=== PATIENT | male | born 1935 | race African-American/Black ===

== ENCOUNTER 2022-01-02 16:47 | Inpatient (IN) | payer MEDICARE, MEDICAID ==
[~2022-01-02] VITALS: Ht 185.4 cm; Wt 69.9 kg
[2022-01-02] MEDS ORDERED: VANCOMYCIN 1G PREMIX 200 ML IV SCH (17:15)
[2022-01-02] MEDS ORDERED: ADENOSINE 3 MG/ML 2ML VIAL IV ONE (17:15)
[2022-01-02] MEDS ORDERED: CEFTRIAXONE 1 G PREMIX 50 ML IV ONE (17:15)
[2022-01-02] MEDS ORDERED: SODIUM CHLORIDE 0.9% 1,000 ML IV ONE (17:15)
[2022-01-02] MEDS ORDERED: ACETAMINOPHEN 650MG SUPP PR ONE (17:30)
[2022-01-02 17:35] LABS: BASOPHILS % 0.4 % (0.0-2.0); EOSINOPHILS % 0.4 % (0.0-5.0); HEMATOCRIT. 28.6 % (42.0-52.0); HEMOGLOBIN. 9.2 g/dL (14.0-18.0); MEAN CORPUSCULAR HEMOGLOBIN 30.1 pg (28.0-32.0); MEAN PLATELET VOLUME 9.2 fl (7.4-10.4); MONOCYTES % 4.4 % (2.0-8.0); NEUTROPHILS % 83.8 % (40.0-76.0); PLATELET 529 x1000/uL (130-400); RED BLOOD CELL COUNT 3.04 mill/uL (4.7-6.1); RED CELL DISTRIBUTION WIDTH 14.8 % (11.6-14.6)
[2022-01-02 17:41] LABS: CHLORIDE 115 mEq/L (98-107)
[2022-01-02] MEDS ORDERED: MIDAZOLAM HCL 100 MG in DEXT 5% WATER 80 ML IV ONE (17:45)
[2022-01-02] MEDS ORDERED: DILTIAZEM HCL 5MG/ML 5ML VIAL IV ONE (17:45)
[2022-01-02] MEDS ORDERED: MIDAZOLAM 100MG/100ML PMX 100 ML IV PRN (18:00)
[2022-01-02 18:06] LABS: BG BASE EXCESS -9.4 mmol/L (-2.0-2.0); BG CARBOXYHEMOGLOBIN 0.3 % (0.5-1.5); BG DEOXYHEMOGLOBIN 0.6 % (0.0-5.0); BG FRACTION INSPIRED OXYGEN 100; BG HCO3 ACT 16.3 mmol/L (22.0-26.0); BG METHEMOGLOBIN 0.4 % (0.0-1.5); BG OXYGEN SATURATION 99.4 % (92.0-98.5); BG OXYHEMOGLOBIN 98.7 % (94.0-97.0); BG PCO2 34.5 mmHg (35.0-45.0); BG PH 7.292 (7.350-7.450); BG PO2 459.9 mmHg (75.0-100.0); BG SAMPLE SITE RIGHT RADIAL; BG TOTAL HEMOGLOBIN 9.1 g/dL (12.0-18.0); BG VENT MODE VENT - AC
[2022-01-02] MEDS ORDERED: PROPOFOL 10MG/ML 100ML 100 ML IV NR (19:30)
[2022-01-02] MEDS ORDERED: PROPOFOL 10MG/ML 100ML 100 ML IV ONE (19:30)
[2022-01-02] MEDS ORDERED: MORPHINE SULFATE 4 MG/ML CPJ (NOT FOR IM USE) IV ONE (22:30)
[2022-01-02] MEDS ORDERED: NOREPINEPHRINE 8MG/250ML PMX 250 ML IV ONE (22:30)
[2022-01-03] VITALS (44 sets, daily range): BP systolic 89–135; BP diastolic 42–69
[2022-01-03] MEDS ORDERED: NOREPINEPHRINE 8MG/250ML PMX 250 ML IV ONE
[2022-01-03] MEDS ORDERED: NOREPINEPHRINE 8MG/250ML PMX 250 ML IV NR ×2 (05:15→05:30)
[2022-01-03] MEDS ORDERED: MIDAZOLAM 100MG/100ML PMX 100 ML IV PRN (05:30)
[2022-01-03] MEDS ORDERED: PROPOFOL 10MG/ML 100ML 100 ML IV SCH (05:30)
[2022-01-03 08:13] LABS: BG BASE EXCESS -6.1 mmol/L (-2.0-2.0); BG CARBOXYHEMOGLOBIN 0.3 % (0.5-1.5); BG DEOXYHEMOGLOBIN 1.7 % (0.0-5.0); BG HCO3 ACT 18.2 mmol/L (22.0-26.0); BG METHEMOGLOBIN 0.3 % (0.0-1.5); BG OXYGEN SATURATION 98.3 % (92.0-98.5); BG OXYHEMOGLOBIN 97.7 % (94.0-97.0); BG PCO2 32.4 mmHg (35.0-45.0); BG PH 7.368 (7.350-7.450); BG PO2 119.8 mmHg (75.0-100.0); BG SAMPLE SITE RIGHT RADIAL; BG TOTAL HEMOGLOBIN 12.3 g/dL (12.0-18.0); BG VENT MODE VENT - AC
[2022-01-03] MEDS ORDERED: PANTOPRAZOLE 80 MG in SODIUM CHLORIDE 0.9% 100 ML IV SCH (08:15)
[2022-01-03 10:02] LABS: CLARITY URINE TURBID (CLEAR); COLOR URINE DARK YELLOW (YELLOW); KETONES URINE TRACE (NEGATIVE); LEUKOCYTE ESTERASE URINE 2+ (NEGATIVE); NITRITE URINE NEGATIVE (NEGATIVE); OCCULT BLOOD URINE 3+ (NEGATIVE); PROTEIN URINE 2+ (NEGATIVE); SPECIFIC GRAVITY URINE 1.022 (1.005-1.030)
[2022-01-03] MEDS ORDERED: ACETAMINOPHEN 325MG TABLET PO PRN (11:15)
[2022-01-03] MEDS ORDERED: HYDROCODONE/ACETAMINOPHEN 5/325MG TABLET PO PRN (11:15)
[2022-01-03] MEDS ORDERED: MAGNESIUM/ALUMINUM HYDROXIDE/SIMETHICONE 30ML UDC PO PRN (11:15)
[2022-01-03] MEDS ORDERED: CLONIDINE 0.1MG TABLET PO PRN (11:15)
[2022-01-03] MEDS ORDERED: DEXTROSE 50% WATER 50ML SYRINGE IV PRN (11:15)
[2022-01-03] MEDS ORDERED: LIDOCAINE HCL 1% 10 MG/ML 10ML VIAL ONE (11:16)
[2022-01-03] MEDS: METHYLPREDNISOLONE SOD SUCC 125 MG/2 ML VIAL IV SCH ×2 (12:01→22:18)
[2022-01-03 12:18] LABS: BASOPHILS % 0.3 % (0.0-2.0); EOSINOPHILS % 0.1 % (0.0-5.0); HEMATOCRIT. 29.3 % (42.0-52.0); HEMOGLOBIN. 9.2 g/dL (14.0-18.0); LYMPHOCYTES % 9.1 % (20.0-50.0); MEAN CORPUSCULAR HEMOGLOBIN 29.9 pg (28.0-32.0); MEAN CORPUSCULAR VOLUME 95.7 fL (80.0-94.0); MONOCYTES % 4.8 % (2.0-8.0); NEUTROPHILS % 85.7 % (40.0-76.0); RED BLOOD CELL COUNT 3.06 mill/uL (4.7-6.1); RED CELL DISTRIBUTION WIDTH 15.3 % (11.6-14.6)
[2022-01-03] MEDS ORDERED: ASPIRIN 81MG EC TABLET PO SCH (12:30)
[2022-01-03] MEDS: PIPERACILLIN/TAZOBACTAM 3.375 G in DEXTROSE 5% WATER 50 ML IV SCH ×2 (12:33→22:18)
[2022-01-03] MEDS: PANTOPRAZOLE SODIUM 40 MG/VIAL IV SCH ×2 (12:33→21:10)
[2022-01-03] MEDS: SODIUM BICARBONATE 100 MEQ in DEXTROSE 5% WATER 1,000 ML IV SCH ×2 (12:34→20:51)
[2022-01-03] MEDS ORDERED: VANCOMYCIN 500MG PREMIX 100 ML IV SCH (13:00)
[2022-01-03] MEDS ORDERED: ENOXAPARIN 30MG/0.3ML SYR SUBCUT SCH (13:00)
[2022-01-03 13:14] LABS: CHLORIDE 115 mEq/L (98-107)
[2022-01-03] MEDS ORDERED: CYAN50003 PO (13:29)
[2022-01-03] MEDS ORDERED: METO25TA6 PO (13:29)
[2022-01-03] MEDS ORDERED: LISI2.5T47 PO (13:29)
[2022-01-03] MEDS ORDERED: ASPI-1497 PO (13:29)
[2022-01-03] MEDS ORDERED: MEMA5TAB42 MT (13:29)
[2022-01-03 13:46] LABS: CREATINE KINASE 10925 IU/L (39-308)
[2022-01-03] MEDS: BLOOD SUGAR DIAGNOSTIC STRIP TEST SCH ×3 (13:47→20:51)
[2022-01-03] MEDS: INSULIN LISPRO 100 UNITS/ML SUBCUT SCH ×3 (13:55→21:12)
[2022-01-03] MEDS ORDERED: NOREPINEPHRINE 8 MG in DEXT 5% WATER 242 ML IV PRN (16:00)
[2022-01-03] MEDS ORDERED: NALOXONE HCL 0.4MG/ML VIAL IV PRN (16:15)
[2022-01-03 18:29] LABS: CREATINE KINASE MB FRACTION 35.6 ng/mL (0.5-3.6)
[2022-01-04] VITALS (45 sets, daily range): BP systolic 95–155; BP diastolic 52–84
[2022-01-04 00:58] LABS: CREATINE KINASE MB FRACTION 29.7 ng/mL (0.5-3.6)
[2022-01-04] MEDS: SODIUM BICARBONATE 100 MEQ in DEXTROSE 5% WATER 1,000 ML IV SCH ×3 (05:55→23:43)
[2022-01-04] MEDS: METHYLPREDNISOLONE SOD SUCC 125 MG/2 ML VIAL IV SCH ×3 (06:05→22:00)
[2022-01-04 06:16] LABS: HEMATOCRIT. 29.2 % (42.0-52.0); HEMOGLOBIN. 9.6 g/dL (14.0-18.0); MEAN CORPUSCULAR HEMOGLOBIN 30.2 pg (28.0-32.0); MEAN CORPUSCULAR VOLUME 91.7 fL (80.0-94.0); MEAN PLATELET VOLUME 9.3 fl (7.4-10.4); PLATELET 442 x1000/uL (130-400); RED BLOOD CELL COUNT 3.18 mill/uL (4.7-6.1)
[2022-01-04 06:32] LABS: CHLORIDE 106 mEq/L (98-107)
[2022-01-04 06:55] LABS: CREATINE KINASE MB FRACTION 21.4 ng/mL (0.5-3.6); HDL CHOLESTEROL 34 mg/dL (40-59); LDL CHOLESTEROL 119 mg/dL (5-100); PHOSPHORUS 3.7 mg/dL (2.5-4.9)
[2022-01-04] MEDS: BLOOD SUGAR DIAGNOSTIC STRIP TEST SCH ×4 (07:50→21:00)
[2022-01-04] MEDS: PIPERACILLIN/TAZOBACTAM 3.375 G in DEXTROSE 5% WATER 50 ML IV SCH ×2 (08:58→21:59)
[2022-01-04] MEDS: PANTOPRAZOLE SODIUM 40 MG/VIAL IV SCH ×2 (08:58→22:00)
[2022-01-04] MEDS: INSULIN LISPRO 100 UNITS/ML SUBCUT SCH ×4 (08:59→23:42)
[2022-01-04 09:08] LABS: BG BASE EXCESS 1.3 mmol/L (-2.0-2.0); BG CARBOXYHEMOGLOBIN 0.3 % (0.5-1.5); BG DEOXYHEMOGLOBIN 1.8 % (0.0-5.0); BG FRACTION INSPIRED OXYGEN 40; BG HCO3 ACT 24.2 mmol/L (22.0-26.0); BG METHEMOGLOBIN 0.4 % (0.0-1.5); BG OXYGEN SATURATION 98.2 % (92.0-98.5); BG OXYHEMOGLOBIN 97.5 % (94.0-97.0); BG PCO2 32.4 mmHg (35.0-45.0); BG PH 7.492 (7.350-7.450); BG PO2 108.7 mmHg (75.0-100.0); BG SAMPLE SITE RIGHT RADIAL; BG TOTAL HEMOGLOBIN 10.3 g/dL (12.0-18.0); BG VENT MODE VENT - AC
[2022-01-04 10:35] LABS: CREATINE KINASE 3970 IU/L (39-308); ETHANOL BLOOD < 10 mg/dL
[2022-01-04 10:51] LABS: PLATELET ESTIMATE SLIGHTLY INCREASED
[2022-01-04] MEDS: INSULIN GLARGINE 100 UNITS/ML SUBCUT SCH (22:01)
[2022-01-04 22:23] LABS: *AMPHETAMINES SCREEN URINE NEGATIVE (NEGATIVE); *BARBITURATES SCREEN URINE NEGATIVE (NEGATIVE); *BENZODIAZEPINES SCREEN URINE PRESUMTIVE POSITIVE (NEGATIVE); *COCAINE SCREEN URINE NEGATIVE (NEGATIVE); CANNABINOID URINE SCREEN NEGATIVE (NEGATIVE); METHADONE URINE SCREEN NEGATIVE (NEGATIVE); OPIATES URINE SCREEN NEGATIVE (NEGATIVE); PHENCYCLIDINE URINE SCREEN NEGATIVE (NEGATIVE)
[2022-01-05] VITALS (41 sets, daily range): BP systolic 100–154; BP diastolic 53–82
[2022-01-05] MEDS: METHYLPREDNISOLONE SOD SUCC 125 MG/2 ML VIAL IV SCH ×3 (05:16→21:59)
[2022-01-05 06:13] LABS: HEMATOCRIT. 25.1 % (42.0-52.0); HEMOGLOBIN. 8.6 g/dL (14.0-18.0); MEAN CORPUSCULAR VOLUME 89.9 fL (80.0-94.0); MEAN PLATELET VOLUME 9.4 fl (7.4-10.4); PLATELET 428 x1000/uL (130-400); RED BLOOD CELL COUNT 2.79 mill/uL (4.7-6.1); RED CELL DISTRIBUTION WIDTH 14.8 % (11.6-14.6)
[2022-01-05 06:56] LABS: PHOSPHORUS 4.6 mg/dL (2.5-4.9)
[2022-01-05] MEDS: SODIUM BICARBONATE 100 MEQ in DEXTROSE 5% WATER 1,000 ML IV SCH (08:06)
[2022-01-05] MEDS: INSULIN LISPRO 100 UNITS/ML SUBCUT SCH ×3 (08:06→18:07)
[2022-01-05] MEDS: BLOOD SUGAR DIAGNOSTIC STRIP TEST SCH ×3 (08:06→18:03)
[2022-01-05 08:54] LABS: BG BASE EXCESS 9.5 mmol/L (-2.0-2.0); BG CARBOXYHEMOGLOBIN 0.3 % (0.5-1.5); BG DEOXYHEMOGLOBIN 2.1 % (0.0-5.0); BG FRACTION INSPIRED OXYGEN 40; BG HCO3 ACT 32.2 mmol/L (22.0-26.0); BG METHEMOGLOBIN 0.4 % (0.0-1.5); BG OXYGEN SATURATION 97.9 % (92.0-98.5); BG OXYHEMOGLOBIN 97.2 % (94.0-97.0); BG PCO2 36.5 mmHg (35.0-45.0); BG PH 7.564 (7.350-7.450); BG PO2 104.3 mmHg (75.0-100.0); BG SAMPLE SITE LEFT RADIAL; BG TOTAL HEMOGLOBIN 9.3 g/dL (12.0-18.0); BG VENT MODE VENT - AC
[2022-01-05] MEDS: PANTOPRAZOLE SODIUM 40 MG/VIAL IV SCH ×2 (09:09→21:35)
[2022-01-05] MEDS: PIPERACILLIN/TAZOBACTAM 3.375 G in DEXTROSE 5% WATER 50 ML IV SCH ×2 (09:09→21:36)
[2022-01-05] MEDS: DEXT 5%/0.45% NACL 1000ML 1,000 ML IV SCH ×2 (10:08→17:23)
[2022-01-05] MEDS ORDERED: VANCOMYCIN 750MG PREMIX 150 ML IV SCH (13:00)
[2022-01-05 14:57] LABS: PLATELET ESTIMATE SLIGHTLY INCREASED
[2022-01-05 17:09] LABS: ANTI-NUCLEAR ANTIBODIES DIRECT Negative (Negative)
[2022-01-05] MEDS: INSULIN GLARGINE 100 UNITS/ML SUBCUT SCH (22:00)
[2022-01-06] VITALS (29 sets, daily range): BP systolic 96–141; BP diastolic 40–101
[2022-01-06] MEDS: BLOOD SUGAR DIAGNOSTIC STRIP TEST SCH ×4 (00:27→17:02)
[2022-01-06] MEDS: DEXT 5%/0.45% NACL 1000ML 1,000 ML IV SCH ×4 (02:53→20:21)
[2022-01-06 05:48] LABS: HEMATOCRIT. 22.3 % (42.0-52.0); HEMOGLOBIN. 7.5 g/dL (14.0-18.0); MEAN CORPUSCULAR HEMOGLOBIN 30.3 pg (28.0-32.0); MEAN CORPUSCULAR VOLUME 90.7 fL (80.0-94.0); MEAN PLATELET VOLUME 9.1 fl (7.4-10.4); PLATELET 367 x1000/uL (130-400); RED BLOOD CELL COUNT 2.46 mill/uL (4.7-6.1); RED CELL DISTRIBUTION WIDTH 14.4 % (11.6-14.6)
[2022-01-06] MEDS: INSULIN LISPRO 100 UNITS/ML SUBCUT SCH ×4 (06:00→17:02)
[2022-01-06] MEDS: METHYLPREDNISOLONE SOD SUCC 125 MG/2 ML VIAL IV SCH ×3 (06:54→22:11)
[2022-01-06 08:26] LABS: BG BASE EXCESS 5.2 mmol/L (-2.0-2.0); BG CARBOXYHEMOGLOBIN 0.3 % (0.5-1.5); BG DEOXYHEMOGLOBIN 2.6 % (0.0-5.0); BG FRACTION INSPIRED OXYGEN 30; BG HCO3 ACT 28.2 mmol/L (22.0-26.0); BG METHEMOGLOBIN 0.3 % (0.0-1.5); BG OXYGEN SATURATION 97.4 % (92.0-98.5); BG OXYHEMOGLOBIN 96.8 % (94.0-97.0); BG PCO2 34.9 mmHg (35.0-45.0); BG PH 7.526 (7.350-7.450); BG PO2 96.4 mmHg (75.0-100.0); BG SAMPLE SITE LEFT RADIAL; BG TOTAL HEMOGLOBIN 8.4 g/dL (12.0-18.0); BG VENT MODE VENT - AC
[2022-01-06] MEDS: PANTOPRAZOLE SODIUM 40 MG/VIAL IV SCH (08:40)
[2022-01-06] MEDS: PIPERACILLIN/TAZOBACTAM 3.375 G in DEXTROSE 5% WATER 50 ML IV SCH (08:41)
[2022-01-06] MEDS ORDERED: POTASSIUM CHLORIDE 20MEQ/PACKET PO NR (09:00)
[2022-01-06] MEDS ORDERED: KCL 20MEQ/100ML PREMIX 100 ML IV NR (10:00)
[2022-01-06 10:52] LABS: BG BASE EXCESS 3.7 mmol/L (-2.0-2.0); BG CARBOXYHEMOGLOBIN 0.3 % (0.5-1.5); BG DEOXYHEMOGLOBIN 3.8 % (0.0-5.0); BG HCO3 ACT 27.4 mmol/L (22.0-26.0); BG METHEMOGLOBIN 0.3 % (0.0-1.5); BG OXYGEN SATURATION 96.2 % (92.0-98.5); BG OXYHEMOGLOBIN 95.6 % (94.0-97.0); BG PCO2 37.8 mmHg (35.0-45.0); BG PH 7.478 (7.350-7.450); BG PO2 86.7 mmHg (75.0-100.0); BG SAMPLE SITE RIGHT RADIAL; BG TOTAL HEMOGLOBIN 9.4 g/dL (12.0-18.0); BG TOTAL RESPIRATORY RATE 13 b/min; BG VENT MODE VENT - CPAP
[2022-01-06] MEDS: CEFEPIME 1,000 MG in DEXTROSE 5% WATER 50 ML IV SCH (12:29)
[2022-01-06 17:06] LABS: ANTI-MYELOPEROXIDASE AB < 0.2 units (0.0-0.9); ANTI-PROTEINASE 3 ABS < 0.2 units (0.0-0.9)
[2022-01-06 17:20] LABS: PLATELET ESTIMATE NORMAL
[2022-01-06] MEDS: IPRATROPIUM/ALBUTEROL 0.5-3(2.5)MG/3ML NEB HHN SCH (20:16)
[2022-01-06] MEDS: INSULIN GLARGINE 100 UNITS/ML SUBCUT SCH (22:12)
[2022-01-07] VITALS (34 sets, daily range): BP systolic 97–136; BP diastolic 47–74
[2022-01-07 00:23] LABS: HEMATOCRIT 25.1 % (42.0-52.0); HEMOGLOBIN 8.2 g/dL (14.0-18.0)
[2022-01-07] MEDS: IPRATROPIUM/ALBUTEROL 0.5-3(2.5)MG/3ML NEB HHN SCH ×4 (00:49→20:56)
[2022-01-07] MEDS: INSULIN LISPRO 100 UNITS/ML SUBCUT SCH ×4 (03:23→17:32)
[2022-01-07] MEDS: DEXT 5%/0.45% NACL 1000ML 1,000 ML IV SCH ×2 (04:02→14:01)
[2022-01-07] MEDS: BLOOD SUGAR DIAGNOSTIC STRIP TEST SCH ×4 (06:00→17:33)
[2022-01-07 06:40] LABS: HEMATOCRIT. 23.9 % (42.0-52.0); HEMOGLOBIN. 7.8 g/dL (14.0-18.0); MEAN CORPUSCULAR HEMOGLOBIN 29.6 pg (28.0-32.0); MEAN CORPUSCULAR VOLUME 91.4 fL (80.0-94.0); MEAN PLATELET VOLUME 9.1 fl (7.4-10.4); PLATELET 363 x1000/uL (130-400); RED BLOOD CELL COUNT 2.62 mill/uL (4.7-6.1); RED CELL DISTRIBUTION WIDTH 14.6 % (11.6-14.6)
[2022-01-07 07:20] LABS: FOLIC ACID (FOLATE) SERUM 10.6 ng/mL (>5.38)
[2022-01-07] MEDS: METHYLPREDNISOLONE SOD SUCC 125 MG/2 ML VIAL IV SCH (07:52)
[2022-01-07] MEDS ORDERED: PANTOPRAZOLE SODIUM 40 MG/VIAL IV SCH ×2 (09:00)
[2022-01-07 09:15] LABS: BG BASE EXCESS 0.5 mmol/L (-2.0-2.0); BG CARBOXYHEMOGLOBIN 0.3 % (0.5-1.5); BG DEOXYHEMOGLOBIN 1.9 % (0.0-5.0); BG FRACTION INSPIRED OXYGEN 32; BG HCO3 ACT 24.1 mmol/L (22.0-26.0); BG METHEMOGLOBIN 0.3 % (0.0-1.5); BG OXYGEN SATURATION 98.1 % (92.0-98.5); BG OXYHEMOGLOBIN 97.5 % (94.0-97.0); BG PCO2 34.3 mmHg (35.0-45.0); BG PH 7.464 (7.350-7.450); BG PO2 123.9 mmHg (75.0-100.0); BG SAMPLE SITE RIGHT RADIAL; BG TOTAL HEMOGLOBIN 8.8 g/dL (12.0-18.0); BG VENT MODE NASAL CANNULA
[2022-01-07] MEDS: PANTOPRAZOLE SODIUM 40 MG/VIAL IV SCH ×2 (10:29→21:54)
[2022-01-07] MEDS: CEFEPIME 1,000 MG in DEXTROSE 5% WATER 50 ML IV SCH (13:42)
[2022-01-07] MEDS ORDERED: VANCOMYCIN 750MG PREMIX 150 ML IV NR (21:00)
[2022-01-07 21:31] LABS: PLATELET ESTIMATE NORMAL
[2022-01-07] MEDS: METHYLPREDNISOLONE SOD SUCC 40 MG/ML VIAL IV SCH (21:54)
[2022-01-07] MEDS: INSULIN GLARGINE 100 UNITS/ML SUBCUT SCH (21:56)
[2022-01-08] VITALS (24 sets, daily range): BP systolic 96–150; BP diastolic 53–85
[2022-01-08] MEDS: BLOOD SUGAR DIAGNOSTIC STRIP TEST SCH ×5 (00:08→23:22)
[2022-01-08] MEDS: DEXT 5%/0.45% NACL 1000ML 1,000 ML IV SCH ×2 (00:08→13:05)
[2022-01-08] MEDS: IPRATROPIUM/ALBUTEROL 0.5-3(2.5)MG/3ML NEB HHN SCH ×4 (01:04→20:38)
[2022-01-08 05:31] LABS: HEMATOCRIT. 24.1 % (42.0-52.0); HEMOGLOBIN. 7.9 g/dL (14.0-18.0); MEAN CORPUSCULAR VOLUME 91.6 fL (80.0-94.0); MEAN PLATELET VOLUME 8.6 fl (7.4-10.4); PLATELET 367 x1000/uL (130-400); RED BLOOD CELL COUNT 2.63 mill/uL (4.7-6.1); RED CELL DISTRIBUTION WIDTH 14.7 % (11.6-14.6)
[2022-01-08] MEDS: INSULIN LISPRO 100 UNITS/ML SUBCUT SCH ×5 (06:00→23:22)
[2022-01-08] MEDS: METHYLPREDNISOLONE SOD SUCC 40 MG/ML VIAL IV SCH ×2 (09:00→20:56)
[2022-01-08] MEDS ORDERED: VANCOMYCIN 750MG PREMIX 150 ML IV NR (09:00)
[2022-01-08] MEDS: PANTOPRAZOLE SODIUM 40 MG/VIAL IV SCH ×2 (09:01→20:56)
[2022-01-08 09:40] LABS: PLATELET ESTIMATE NORMAL
[2022-01-08] MEDS: CEFEPIME 1,000 MG in DEXTROSE 5% WATER 50 ML IV SCH (13:04)
[2022-01-08] MEDS: INSULIN GLARGINE 100 UNITS/ML SUBCUT SCH (22:57)
[2022-01-09] VITALS (10 sets, daily range): BP systolic 113–141; BP diastolic 54–94
[2022-01-09] MEDS: IPRATROPIUM/ALBUTEROL 0.5-3(2.5)MG/3ML NEB HHN SCH ×4 (01:28→22:00)
[2022-01-09 05:32] LABS: CHLORIDE 105 mEq/L (98-107)
[2022-01-09] MEDS: INSULIN LISPRO 100 UNITS/ML SUBCUT SCH ×3 (06:00→17:26)
[2022-01-09] MEDS: BLOOD SUGAR DIAGNOSTIC STRIP TEST SCH ×3 (06:00→17:26)
[2022-01-09 06:49] LABS: HEMATOCRIT. 27.3 % (42.0-52.0); MEAN CORPUSCULAR HEMOGLOBIN 30.1 pg (28.0-32.0); MEAN CORPUSCULAR VOLUME 91.3 fL (80.0-94.0); MEAN PLATELET VOLUME 10.3 fl (7.4-10.4); PLATELET 355 x1000/uL (130-400); RED BLOOD CELL COUNT 2.99 mill/uL (4.7-6.1); RED CELL DISTRIBUTION WIDTH 14.4 % (11.6-14.6)
[2022-01-09] MEDS: PANTOPRAZOLE SODIUM 40 MG/VIAL IV SCH ×2 (09:22→22:16)
[2022-01-09] MEDS: DEXT 5%/0.45% NACL 1000ML 1,000 ML IV SCH (09:22)
[2022-01-09] MEDS: METHYLPREDNISOLONE SOD SUCC 40 MG/ML VIAL IV SCH ×2 (09:22→22:16)
[2022-01-09] MEDS: CEFEPIME 1,000 MG in DEXTROSE 5% WATER 50 ML IV SCH (14:44)
[2022-01-09 16:53] LABS: PLATELET ESTIMATE NORMAL
[2022-01-09] MEDS: INSULIN GLARGINE 100 UNITS/ML SUBCUT SCH (22:17)
[2022-01-10] VITALS (8 sets, daily range): BP systolic 111–138; BP diastolic 48–78
[2022-01-10] MEDS: IPRATROPIUM/ALBUTEROL 0.5-3(2.5)MG/3ML NEB HHN SCH ×4 (01:08→20:25)
[2022-01-10] MEDS: DEXT 5%/0.45% NACL 1000ML 1,000 ML IV SCH (05:43)
[2022-01-10 06:40] LABS: HEMATOCRIT. 22.4 % (42.0-52.0); HEMOGLOBIN. 7.4 g/dL (14.0-18.0); MEAN CORPUSCULAR HEMOGLOBIN 30.3 pg (28.0-32.0); MEAN PLATELET VOLUME 9.3 fl (7.4-10.4); PLATELET 358 x1000/uL (130-400); RED BLOOD CELL COUNT 2.43 mill/uL (4.7-6.1)
[2022-01-10] MEDS: INSULIN LISPRO 100 UNITS/ML SUBCUT SCH ×5 (06:45→23:42)
[2022-01-10] MEDS: BLOOD SUGAR DIAGNOSTIC STRIP TEST SCH ×5 (06:45→23:42)
[2022-01-10] MEDS: PANTOPRAZOLE SODIUM 40 MG/VIAL IV SCH ×2 (09:37→20:26)
[2022-01-10] MEDS: METHYLPREDNISOLONE SOD SUCC 40 MG/ML VIAL IV SCH (09:37)
[2022-01-10 13:07] LABS: ATYPICAL P-ANCA <1:20 titer (Neg:<1:20); CYTOPLASMIC C-ANCA <1:20 titer (Neg:<1:20); PERINUCLEAR P-ANCA <1:20 titer (Neg:<1:20)
[2022-01-10] MEDS: CEFEPIME 1,000 MG in DEXTROSE 5% WATER 50 ML IV SCH (13:51)
[2022-01-10 16:42] LABS: INR 1.4; PROTHROMBIN TIME 14.8 sec (9.6-11.0)
[2022-01-10] MEDS: INSULIN GLARGINE 100 UNITS/ML SUBCUT SCH (20:26)
[2022-01-10 21:27] LABS: PLATELET ESTIMATE NORMAL
[2022-01-11] VITALS: BP 122/50
[2022-01-11] MEDS: DEXT 5%/0.45% NACL 1000ML 1,000 ML IV SCH (02:42)
[2022-01-11] MEDS: IPRATROPIUM/ALBUTEROL 0.5-3(2.5)MG/3ML NEB HHN SCH ×4 (02:46→21:04)
[2022-01-11 04:00] VITALS: BP 163/78
[2022-01-11] MEDS: DEXTROSE 50% WATER 50ML SYRINGE IV PRN ×2 (05:52→12:25)
[2022-01-11] MEDS: INSULIN LISPRO 100 UNITS/ML SUBCUT SCH ×3 (06:00→17:51)
[2022-01-11] MEDS: BLOOD SUGAR DIAGNOSTIC STRIP TEST SCH ×3 (06:07→17:52)
[2022-01-11 07:13] LABS: HEMATOCRIT. 24.1 % (42.0-52.0); MEAN CORPUSCULAR HEMOGLOBIN 30.9 pg (28.0-32.0); MEAN CORPUSCULAR VOLUME 93.2 fL (80.0-94.0); PLATELET 333 x1000/uL (130-400); RED BLOOD CELL COUNT 2.58 mill/uL (4.7-6.1)
[2022-01-11 08:00] VITALS: BP 125/65
[2022-01-11] MEDS: PANTOPRAZOLE SODIUM 40 MG/VIAL IV SCH ×2 (09:05→20:44)
[2022-01-11] MEDS ORDERED: DEXT 10% WATER 1,000 ML IV SCH (09:45)
[2022-01-11] MEDS: DEXT 10% WATER 1,000 ML IV SCH (10:18)
[2022-01-11] MEDS ORDERED: VANCOMYCIN 500MG PREMIX 100 ML IV NR (12:00)
[2022-01-11 12:20] VITALS: BP 121/60
[2022-01-11] MEDS: CEFEPIME 1,000 MG in DEXTROSE 5% WATER 50 ML IV SCH (12:30)
[2022-01-11 15:25] LABS: HEPATITIS B SURFACE ANTIGEN NEGATIVE
[2022-01-11 16:00] VITALS: BP 119/52
[2022-01-11 20:00] VITALS: BP 126/65
[2022-01-11] MEDS: CARVEDILOL 3.125 MG TABLET PO SCH (20:44)
[2022-01-11] MEDS: ATORVASTATIN CALCIUM 40MG TABLET PO SCH (20:44)
[2022-01-11 22:05] LABS: PLATELET ESTIMATE NORMAL
[2022-01-12] VITALS: BP 123/67
[2022-01-12] MEDS: BLOOD SUGAR DIAGNOSTIC STRIP TEST SCH ×4 (06:00→17:02)
[2022-01-12] MEDS: INSULIN LISPRO 100 UNITS/ML SUBCUT SCH ×4 (06:00→17:02)
[2022-01-12 08:00] VITALS: BP 106/72
[2022-01-12] MEDS: IPRATROPIUM/ALBUTEROL 0.5-3(2.5)MG/3ML NEB HHN SCH ×3 (08:25→20:05)
[2022-01-12] MEDS ORDERED: FUROSEMIDE 20MG TABLET PO SCH (09:00)
[2022-01-12] MEDS ORDERED: LOSARTAN POTASSIUM 25 MG TABLET PO SCH (09:00)
[2022-01-12] MEDS: PANTOPRAZOLE SODIUM 40 MG/VIAL IV SCH ×2 (09:00→21:00)
[2022-01-12 11:41] LABS: HEMATOCRIT. 22.3 % (42.0-52.0); HEMOGLOBIN. 7.4 g/dL (14.0-18.0); MEAN CORPUSCULAR HEMOGLOBIN 30.8 pg (28.0-32.0); MEAN CORPUSCULAR VOLUME 92.2 fL (80.0-94.0); MEAN PLATELET VOLUME 9.2 fl (7.4-10.4); PLATELET 308 x1000/uL (130-400); RED BLOOD CELL COUNT 2.41 mill/uL (4.7-6.1); RED CELL DISTRIBUTION WIDTH 15.3 % (11.6-14.6)
[2022-01-12 11:51] LABS: INR 1.5; PROTHROMBIN TIME 15.3 sec (9.6-11.0)
[2022-01-12 12:00] VITALS: BP 116/56
[2022-01-12] MEDS: FUROSEMIDE 40MG/4ML VIAL IVP SCH (13:34)
[2022-01-12] MEDS: CEFEPIME 1,000 MG in DEXTROSE 5% WATER 50 ML IV SCH (13:34)
[2022-01-12] MEDS: DEXT 10% WATER 1,000 ML IV SCH (13:35)
[2022-01-12 16:00] VITALS: BP 102/64
[2022-01-12 20:00] VITALS: BP 128/63
[2022-01-12] MEDS ORDERED: FUROSEMIDE 20MG/2ML VIAL IVP NR (20:00)
[2022-01-12] MEDS: ATORVASTATIN CALCIUM 40MG TABLET PO SCH (21:00)
[2022-01-12 22:14] LABS: PLATELET ESTIMATE NORMAL
[2022-01-12 23:11] VITALS: BP 128/63
[2022-01-13] VITALS (9 sets, daily range): BP systolic 101–120; BP diastolic 59–65
[2022-01-13] MEDS: BLOOD SUGAR DIAGNOSTIC STRIP TEST SCH ×4 (00:01→17:41)
[2022-01-13] MEDS: IPRATROPIUM/ALBUTEROL 0.5-3(2.5)MG/3ML NEB HHN SCH ×4 (01:00→20:41)
[2022-01-13 03:34] LABS: MEAN CORPUSCULAR HEMOGLOBIN 30.7 pg (28.0-32.0); MEAN CORPUSCULAR VOLUME 91.2 fL (80.0-94.0); MEAN PLATELET VOLUME 9.2 fl (7.4-10.4); PLATELET 289 x1000/uL (130-400); RED BLOOD CELL COUNT 2.28 mill/uL (4.7-6.1); RED CELL DISTRIBUTION WIDTH 15.3 % (11.6-14.6)
[2022-01-13 03:55] LABS: CHLORIDE 105 mEq/L (98-107)
[2022-01-13 03:57] LABS: INR 1.4; PROTHROMBIN TIME 14.7 sec (9.6-11.0)
[2022-01-13 04:34] LABS: HEMATOCRIT. 20.8 % (42.0-52.0)
[2022-01-13] MEDS: INSULIN LISPRO 100 UNITS/ML SUBCUT SCH ×4 (05:57→17:54)
[2022-01-13] MEDS: FUROSEMIDE 40MG/4ML VIAL IVP SCH (08:40)
[2022-01-13] MEDS: PANTOPRAZOLE SODIUM 40 MG/VIAL IV SCH ×2 (08:40→21:19)
[2022-01-13] MEDS ORDERED: LIDOCAINE HCL/PF 1% 10 MG/ML 5ML VIAL ONE (08:58)
[2022-01-13] MEDS: CEFEPIME 1,000 MG in DEXTROSE 5% WATER 50 ML IV SCH (12:18)
[2022-01-13] MEDS: DEXT 10% WATER 1,000 ML IV SCH (12:22)
[2022-01-13] MEDS: ATORVASTATIN CALCIUM 40MG TABLET PO SCH (21:19)
[2022-01-13] MEDS ORDERED: VANCOMYCIN 500MG PREMIX 100 ML IV NR (22:00)
[2022-01-14] VITALS (8 sets, daily range): BP systolic 112–128; BP diastolic 61–85
[2022-01-14] MEDS: BLOOD SUGAR DIAGNOSTIC STRIP TEST SCH ×5 (00:21→23:59)
[2022-01-14] MEDS: IPRATROPIUM/ALBUTEROL 0.5-3(2.5)MG/3ML NEB HHN SCH ×4 (01:21→20:30)
[2022-01-14] MEDS: INSULIN LISPRO 100 UNITS/ML SUBCUT SCH ×5 (05:20→23:59)
[2022-01-14 06:50] LABS: HEMATOCRIT. 22.6 % (42.0-52.0); HEMOGLOBIN. 7.8 g/dL (14.0-18.0); MEAN CORPUSCULAR HEMOGLOBIN 31.1 pg (28.0-32.0); MEAN CORPUSCULAR VOLUME 90.8 fL (80.0-94.0); MEAN PLATELET VOLUME 8.8 fl (7.4-10.4); PLATELET 257 x1000/uL (130-400); RED BLOOD CELL COUNT 2.49 mill/uL (4.7-6.1)
[2022-01-14] MEDS: RISPERIDONE 0.5MG TABLET PO SCH (09:26)
[2022-01-14] MEDS: LORAZEPAM 1MG TABLET PO PRN (09:26)
[2022-01-14] MEDS: FUROSEMIDE 40MG/4ML VIAL IVP SCH (09:27)
[2022-01-14] MEDS: PANTOPRAZOLE SODIUM 40 MG/VIAL IV SCH ×2 (09:27→20:59)
[2022-01-14] MEDS: DEXT 10% WATER 1,000 ML IV SCH (11:07)
[2022-01-14 12:58] LABS: PLATELET ESTIMATE NORMAL
[2022-01-14] MEDS: CEFEPIME 1,000 MG in DEXTROSE 5% WATER 50 ML IV SCH (13:22)
[2022-01-14 13:36] LABS: PLATELET ESTIMATE NORMAL
[2022-01-14] MEDS: ATORVASTATIN CALCIUM 40MG TABLET PO SCH (20:59)
[2022-01-15] VITALS (12 sets, daily range): BP systolic 92–128; BP diastolic 40–76
[2022-01-15] MEDS: IPRATROPIUM/ALBUTEROL 0.5-3(2.5)MG/3ML NEB HHN SCH ×4 (02:12→20:49)
[2022-01-15] MEDS: INSULIN LISPRO 100 UNITS/ML SUBCUT SCH ×4 (06:00→23:53)
[2022-01-15] MEDS: BLOOD SUGAR DIAGNOSTIC STRIP TEST SCH ×4 (06:34→23:53)
[2022-01-15 06:45] LABS: HEMATOCRIT. 24.2 % (42.0-52.0); MEAN CORPUSCULAR HEMOGLOBIN 30.5 pg (28.0-32.0); MEAN CORPUSCULAR VOLUME 92.6 fL (80.0-94.0); MEAN PLATELET VOLUME 9.4 fl (7.4-10.4); PLATELET 241 x1000/uL (130-400); RED BLOOD CELL COUNT 2.62 mill/uL (4.7-6.1); RED CELL DISTRIBUTION WIDTH 15.4 % (11.6-14.6)
[2022-01-15 07:18] LABS: BG BASE EXCESS -1.9 mmol/L (-2.0-2.0); BG CARBOXYHEMOGLOBIN 0.3 % (0.5-1.5); BG DEOXYHEMOGLOBIN 1.4 % (0.0-5.0); BG HCO3 ACT 21.5 mmol/L (22.0-26.0); BG METHEMOGLOBIN 0.5 % (0.0-1.5); BG OXYGEN SATURATION 98.6 % (92.0-98.5); BG OXYHEMOGLOBIN 97.8 % (94.0-97.0); BG PCO2 31.3 mmHg (35.0-45.0); BG PH 7.455 (7.350-7.450); BG PO2 166.1 mmHg (75.0-100.0); BG SAMPLE SITE LEFT RADIAL; BG TOTAL HEMOGLOBIN 8.7 g/dL (12.0-18.0); BG VENT MODE MASK - BIPAP
[2022-01-15] MEDS: RISPERIDONE 0.5MG TABLET PO SCH (09:00)
[2022-01-15] MEDS: PANTOPRAZOLE SODIUM 40 MG/VIAL IV SCH ×2 (09:05→20:42)
[2022-01-15] MEDS: FUROSEMIDE 40MG/4ML VIAL IVP SCH (09:05)
[2022-01-15] MEDS: DEXT 10% WATER 1,000 ML IV SCH (09:06)
[2022-01-15] MEDS ORDERED: LORAZEPAM 2MG/ML CPJ IV SCH (10:30)
[2022-01-15] MEDS: CEFEPIME 1,000 MG in DEXTROSE 5% WATER 50 ML IV SCH (12:19)
[2022-01-15 15:16] LABS: PLATELET ESTIMATE NORMAL
[2022-01-15] MEDS: ATORVASTATIN CALCIUM 40MG TABLET PO SCH (20:42)
[2022-01-16] VITALS (12 sets, daily range): BP systolic 92–124; BP diastolic 48–69
[2022-01-16] MEDS: IPRATROPIUM/ALBUTEROL 0.5-3(2.5)MG/3ML NEB HHN SCH ×4 (02:06→20:20)
[2022-01-16] MEDS: INSULIN LISPRO 100 UNITS/ML SUBCUT SCH ×3 (06:00→17:59)
[2022-01-16] MEDS: BLOOD SUGAR DIAGNOSTIC STRIP TEST SCH ×3 (06:10→17:59)
[2022-01-16 07:17] LABS: HEMATOCRIT. 21.4 % (42.0-52.0); HEMOGLOBIN. 7.2 g/dL (14.0-18.0); MEAN CORPUSCULAR VOLUME 91.8 fL (80.0-94.0); MEAN PLATELET VOLUME 9.7 fl (7.4-10.4); PLATELET 203 x1000/uL (130-400); RED BLOOD CELL COUNT 2.33 mill/uL (4.7-6.1); RED CELL DISTRIBUTION WIDTH 14.7 % (11.6-14.6)
[2022-01-16 09:10] LABS: BG BASE EXCESS -2.5 mmol/L (-2.0-2.0); BG CARBOXYHEMOGLOBIN 0.3 % (0.5-1.5); BG DEOXYHEMOGLOBIN 2.1 % (0.0-5.0); BG FRACTION INSPIRED OXYGEN 30; BG HCO3 ACT 21.1 mmol/L (22.0-26.0); BG METHEMOGLOBIN 0.4 % (0.0-1.5); BG OXYGEN SATURATION 97.9 % (92.0-98.5); BG OXYHEMOGLOBIN 97.2 % (94.0-97.0); BG PCO2 31.6 mmHg (35.0-45.0); BG PH 7.443 (7.350-7.450); BG PO2 113.6 mmHg (75.0-100.0); BG SAMPLE SITE LEFT BRACHIAL; BG VENT MODE MASK - BIPAP
[2022-01-16] MEDS: FUROSEMIDE 40MG/4ML VIAL IVP SCH (10:11)
[2022-01-16] MEDS: RISPERIDONE 0.5MG TABLET PO SCH (10:12)
[2022-01-16] MEDS: DEXT 10% WATER 1,000 ML IV SCH (10:12)
[2022-01-16] MEDS: LORAZEPAM 1MG TABLET PO PRN (10:12)
[2022-01-16] MEDS: PANTOPRAZOLE SODIUM 40 MG/VIAL IV SCH ×2 (10:12→20:44)
[2022-01-16] MEDS: CEFEPIME 1,000 MG in DEXTROSE 5% WATER 50 ML IV SCH (13:48)
[2022-01-16] MEDS: ATORVASTATIN CALCIUM 40MG TABLET PO SCH (20:44)
[2022-01-17] VITALS (15 sets, daily range): BP systolic 92–116; BP diastolic 52–72
[2022-01-17] MEDS: BLOOD SUGAR DIAGNOSTIC STRIP TEST SCH ×4 (00:09→18:00)
[2022-01-17] MEDS: INSULIN LISPRO 100 UNITS/ML SUBCUT SCH ×4 (06:00→18:00)
[2022-01-17 06:37] LABS: HEMATOCRIT. 22.1 % (42.0-52.0); HEMOGLOBIN. 7.2 g/dL (14.0-18.0); MEAN CORPUSCULAR VOLUME 94.7 fL (80.0-94.0); MEAN PLATELET VOLUME 9.6 fl (7.4-10.4); PLATELET 173 x1000/uL (130-400); RED BLOOD CELL COUNT 2.34 mill/uL (4.7-6.1); RED CELL DISTRIBUTION WIDTH 15.7 % (11.6-14.6)
[2022-01-17] MEDS: FUROSEMIDE 40MG/4ML VIAL IVP SCH ×2 (09:00→12:58)
[2022-01-17] MEDS: PANTOPRAZOLE SODIUM 40 MG/VIAL IV SCH ×3 (09:00→21:21)
[2022-01-17] MEDS: RISPERIDONE 0.5MG TABLET PO SCH (09:00)
[2022-01-17] MEDS ORDERED: MIDAZOLAM HCL 2 MG/2 ML VIAL ONE (09:25)
[2022-01-17] MEDS: IPRATROPIUM/ALBUTEROL 0.5-3(2.5)MG/3ML NEB HHN SCH ×4 (09:30→20:31)
[2022-01-17] MEDS: DEXT 10% WATER 1,000 ML IV SCH (09:54)
[2022-01-17] MEDS ORDERED: VANCOMYCIN 500MG PREMIX 100 ML IV NR ×2 (12:00→18:00)
[2022-01-17] MEDS: CEFEPIME 1,000 MG in DEXTROSE 5% WATER 50 ML IV SCH (12:56)
[2022-01-17 13:06] LABS: PLATELET ESTIMATE NORMAL
[2022-01-17 17:43] LABS: HEPATITIS B SURFACE ANTIGEN NEGATIVE
[2022-01-17 18:00] LABS: PLATELET ESTIMATE NORMAL
[2022-01-17 18:27] LABS: HEMATOCRIT 25.6 % (42.0-52.0); HEMOGLOBIN 8.8 g/dL (14.0-18.0)
[2022-01-17] MEDS: ATORVASTATIN CALCIUM 40MG TABLET PO SCH (21:21)
[2022-01-18] VITALS (12 sets, daily range): BP systolic 107–141; BP diastolic 50–98
[2022-01-18] MEDS: ACETYLCYSTEINE 100MG/ML 10% VIAL 4ML INH SCH ×3 (01:10→16:22)
[2022-01-18] MEDS: IPRATROPIUM/ALBUTEROL 0.5-3(2.5)MG/3ML NEB HHN SCH ×4 (01:10→20:42)
[2022-01-18] MEDS: INSULIN LISPRO 100 UNITS/ML SUBCUT SCH ×4 (06:00→18:00)
[2022-01-18] MEDS: BLOOD SUGAR DIAGNOSTIC STRIP TEST SCH ×4 (06:18→18:27)
[2022-01-18 06:44] LABS: HEMATOCRIT. 26.1 % (42.0-52.0); HEMOGLOBIN. 9.1 g/dL (14.0-18.0); MEAN CORPUSCULAR HEMOGLOBIN 31.7 pg (28.0-32.0); MEAN CORPUSCULAR VOLUME 90.5 fL (80.0-94.0); MEAN PLATELET VOLUME 9.8 fl (7.4-10.4); PLATELET 155 x1000/uL (130-400); RED BLOOD CELL COUNT 2.89 mill/uL (4.7-6.1); RED CELL DISTRIBUTION WIDTH 14.6 % (11.6-14.6)
[2022-01-18 08:28] LABS: PLATELET ESTIMATE NORMAL
[2022-01-18] MEDS: FUROSEMIDE 40MG/4ML VIAL IVP SCH (09:44)
[2022-01-18] MEDS: PANTOPRAZOLE SODIUM 40 MG/VIAL IV SCH ×2 (09:44→20:59)
[2022-01-18] MEDS: RISPERIDONE 0.5MG TABLET PO SCH (09:44)
[2022-01-18] MEDS: CEFEPIME 1,000 MG in DEXTROSE 5% WATER 50 ML IV SCH (13:35)
[2022-01-18] MEDS ORDERED: BISACODYL 10MG SUPP PR NR (15:15)
[2022-01-18] MEDS: ATORVASTATIN CALCIUM 40MG TABLET PO SCH (20:59)
[2022-01-19] VITALS (12 sets, daily range): BP systolic 114–137; BP diastolic 61–69
[2022-01-19] MEDS: ACETYLCYSTEINE 100MG/ML 10% VIAL 4ML INH SCH ×3 (00:31→22:00)
[2022-01-19] MEDS: IPRATROPIUM/ALBUTEROL 0.5-3(2.5)MG/3ML NEB HHN SCH ×4 (00:31→20:22)
[2022-01-19] MEDS: BLOOD SUGAR DIAGNOSTIC STRIP TEST SCH ×5 (05:49→23:55)
[2022-01-19] MEDS: INSULIN LISPRO 100 UNITS/ML SUBCUT SCH ×5 (05:49→23:56)
[2022-01-19] MEDS: DEXT 10% WATER 1,000 ML IV SCH ×2 (05:50→10:52)
[2022-01-19 06:14] LABS: HEMOGLOBIN. 8.9 g/dL (14.0-18.0); MEAN CORPUSCULAR HEMOGLOBIN 31.5 pg (28.0-32.0); MEAN CORPUSCULAR VOLUME 91.7 fL (80.0-94.0); MEAN PLATELET VOLUME 9.8 fl (7.4-10.4); PLATELET 139 x1000/uL (130-400); RED BLOOD CELL COUNT 2.83 mill/uL (4.7-6.1)
[2022-01-19] MEDS: RISPERIDONE 0.5MG TABLET PO SCH ×2 (08:25→17:09)
[2022-01-19] MEDS: PANTOPRAZOLE SODIUM 40 MG/VIAL IV SCH ×2 (08:25→21:45)
[2022-01-19] MEDS: DOCUSATE SODIUM SUGAR FREE 100MG/10ML UDC NG SCH (08:25)
[2022-01-19 10:11] LABS: PLATELET ESTIMATE NORMAL
[2022-01-19] MEDS: CEFEPIME 1,000 MG in DEXTROSE 5% WATER 50 ML IV SCH (13:01)
[2022-01-19] MEDS ORDERED: LORAZEPAM 2MG/ML CPJ IV PRN (16:30)
[2022-01-19] MEDS ORDERED: VANCOMYCIN 500MG PREMIX 100 ML IV NR (21:00)
[2022-01-19] MEDS: ATORVASTATIN CALCIUM 40MG TABLET PO SCH (21:45)
[2022-01-19] MEDS: CARVEDILOL 3.125 MG TABLET PO SCH (21:45)
[2022-01-19] MEDS: ONDANSETRON HCL 4MG/2ML INJ IV PRN (23:20)
[2022-01-20] VITALS (12 sets, daily range): BP systolic 96–118; BP diastolic 51–70
[2022-01-20] MEDS: BLOOD SUGAR DIAGNOSTIC STRIP TEST SCH ×3 (06:00→18:12)
[2022-01-20] MEDS: INSULIN LISPRO 100 UNITS/ML SUBCUT SCH ×3 (06:00→18:00)
[2022-01-20] MEDS: ONDANSETRON HCL 4MG/2ML INJ IV PRN (06:30)
[2022-01-20 07:40] LABS: HEMATOCRIT. 25.6 % (42.0-52.0); HEMOGLOBIN. 8.5 g/dL (14.0-18.0); MEAN CORPUSCULAR HEMOGLOBIN 31.3 pg (28.0-32.0); MEAN CORPUSCULAR VOLUME 94.2 fL (80.0-94.0); MEAN PLATELET VOLUME 9.8 fl (7.4-10.4); PLATELET 117 x1000/uL (130-400); RED BLOOD CELL COUNT 2.72 mill/uL (4.7-6.1)
[2022-01-20] MEDS: DOCUSATE SODIUM SUGAR FREE 100MG/10ML UDC NG SCH (08:21)
[2022-01-20] MEDS: PANTOPRAZOLE SODIUM 40 MG/VIAL IV SCH ×2 (08:21→20:27)
[2022-01-20] MEDS: RISPERIDONE 0.5MG TABLET PO SCH ×2 (08:22→16:20)
[2022-01-20] MEDS: CARVEDILOL 3.125 MG TABLET PO SCH ×2 (08:26→20:27)
[2022-01-20] MEDS: IPRATROPIUM/ALBUTEROL 0.5-3(2.5)MG/3ML NEB HHN SCH ×4 (08:31→18:00)
[2022-01-20] MEDS: ACETYLCYSTEINE 100MG/ML 10% VIAL 4ML INH SCH ×3 (08:31→22:00)
[2022-01-20 08:57] LABS: PLATELET ESTIMATE SLIGHTLY DECREASED
[2022-01-20] MEDS: DEXT 10% WATER 1,000 ML IV SCH (09:54)
[2022-01-20] MEDS: CEFEPIME 1,000 MG in DEXTROSE 5% WATER 50 ML IV SCH (11:59)
[2022-01-20] MEDS: LORAZEPAM 0.5MG TABLET PO PRN (16:20)
[2022-01-20] MEDS: ATORVASTATIN CALCIUM 40MG TABLET PO SCH (20:28)
[2022-01-21] VITALS (13 sets, daily range): BP systolic 98–125; BP diastolic 52–69
[2022-01-21] MEDS: BLOOD SUGAR DIAGNOSTIC STRIP TEST SCH ×4 (00:14→17:33)
[2022-01-21] MEDS: INSULIN LISPRO 100 UNITS/ML SUBCUT SCH ×4 (05:55→17:32)
[2022-01-21 06:25] LABS: HEMATOCRIT. 29.9 % (42.0-52.0); HEMOGLOBIN. 9.9 g/dL (14.0-18.0); MEAN CORPUSCULAR HEMOGLOBIN 30.9 pg (28.0-32.0); MEAN CORPUSCULAR VOLUME 93.4 fL (80.0-94.0); MEAN PLATELET VOLUME 10.1 fl (7.4-10.4); PLATELET 123 x1000/uL (130-400); RED CELL DISTRIBUTION WIDTH 14.8 % (11.6-14.6)
[2022-01-21] MEDS: PANTOPRAZOLE SODIUM 40 MG/VIAL IV SCH ×2 (08:18→20:06)
[2022-01-21] MEDS: DOCUSATE SODIUM SUGAR FREE 100MG/10ML UDC NG SCH (08:18)
[2022-01-21] MEDS: CARVEDILOL 3.125 MG TABLET PO SCH ×2 (08:19→20:06)
[2022-01-21] MEDS: RISPERIDONE 0.5MG TABLET PO SCH ×2 (08:20→16:18)
[2022-01-21] MEDS: LORAZEPAM 0.5MG TABLET PO PRN (08:31)
[2022-01-21] MEDS: DEXT 10% WATER 1,000 ML IV SCH (09:04)
[2022-01-21] MEDS: ACETYLCYSTEINE 100MG/ML 10% VIAL 4ML INH SCH ×2 (09:20→17:15)
[2022-01-21] MEDS: IPRATROPIUM/ALBUTEROL 0.5-3(2.5)MG/3ML NEB HHN SCH ×4 (09:20→20:41)
[2022-01-21] MEDS: CEFEPIME 1,000 MG in DEXTROSE 5% WATER 50 ML IV SCH (12:16)
[2022-01-21 14:01] LABS: PLATELET ESTIMATE SLIGHTLY DECREASED
[2022-01-21] MEDS ORDERED: VANCOMYCIN 500MG PREMIX 100 ML IV NR (18:00)
[2022-01-21] MEDS: ATORVASTATIN CALCIUM 40MG TABLET PO SCH (20:07)
[2022-01-21 20:36] LABS: HEMATOCRIT. 25.6 % (42.0-52.0); HEMOGLOBIN. 8.6 g/dL (14.0-18.0); MEAN CORPUSCULAR HEMOGLOBIN 30.8 pg (28.0-32.0); MEAN CORPUSCULAR VOLUME 91.9 fL (80.0-94.0); MEAN PLATELET VOLUME 9.7 fl (7.4-10.4); PLATELET 119 x1000/uL (130-400); RED BLOOD CELL COUNT 2.78 mill/uL (4.7-6.1); RED CELL DISTRIBUTION WIDTH 14.6 % (11.6-14.6)
[2022-01-21 20:39] LABS: CHLORIDE 100 mEq/L (98-107)
[2022-01-21 23:09] LABS: PLATELET ESTIMATE DECREASED
[2022-01-22] VITALS (15 sets, daily range): BP systolic 82–120; BP diastolic 42–62
[2022-01-22] MEDS: BLOOD SUGAR DIAGNOSTIC STRIP TEST SCH ×5 (00:39→23:16)
[2022-01-22] MEDS: IPRATROPIUM/ALBUTEROL 0.5-3(2.5)MG/3ML NEB HHN SCH ×4 (02:23→20:11)
[2022-01-22] MEDS: ACETYLCYSTEINE 100MG/ML 10% VIAL 4ML INH SCH ×2 (02:23→08:43)
[2022-01-22] MEDS: INSULIN LISPRO 100 UNITS/ML SUBCUT SCH ×5 (05:47→23:20)
[2022-01-22 05:49] LABS: HEMATOCRIT. 26.5 % (42.0-52.0); HEMOGLOBIN. 8.8 g/dL (14.0-18.0); MEAN CORPUSCULAR VOLUME 93.1 fL (80.0-94.0); MEAN PLATELET VOLUME 9.9 fl (7.4-10.4); PLATELET 110 x1000/uL (130-400); RED BLOOD CELL COUNT 2.84 mill/uL (4.7-6.1); RED CELL DISTRIBUTION WIDTH 14.6 % (11.6-14.6)
[2022-01-22 05:56] LABS: INR 1.4; PROTHROMBIN TIME 14.3 sec (9.6-11.0)
[2022-01-22 08:11] LABS: PLATELET ESTIMATE SLIGHTLY DECREASED
[2022-01-22] MEDS: PANTOPRAZOLE SODIUM 40 MG/VIAL IV SCH ×2 (08:38→20:48)
[2022-01-22] MEDS: DOCUSATE SODIUM SUGAR FREE 100MG/10ML UDC NG SCH (08:38)
[2022-01-22] MEDS: CARVEDILOL 3.125 MG TABLET PO SCH ×2 (08:38→20:48)
[2022-01-22] MEDS: RISPERIDONE 0.5MG TABLET PO SCH ×2 (08:38→17:25)
[2022-01-22] MEDS: DEXT 10% WATER 1,000 ML IV SCH (09:24)
[2022-01-22] MEDS ORDERED: POTASSIUM CHLORIDE INJ 40 MEQ in DEXT 5% WATER 500 ML IV ONE (09:30)
[2022-01-22] MEDS ORDERED: KCL 20MEQ/100ML PREMIX 100 ML IV ONE (09:45)
[2022-01-22] MEDS: CEFEPIME 1,000 MG in DEXTROSE 5% WATER 50 ML IV SCH (12:48)
[2022-01-22] MEDS ORDERED: ONDANSETRON HCL 4MG/2ML INJ ONE (14:27)
[2022-01-22] MEDS ORDERED: PROPOFOL 200MG/20ML VIAL IV ONE (14:27)
[2022-01-22] MEDS ORDERED: DEXAMETHASONE 4MG/ML 1ML VIAL ONE (14:28)
[2022-01-22] MEDS ORDERED: HEPARIN 1000 UNITS/ML 2ML VIAL IV PRN (14:45)
[2022-01-22] MEDS ORDERED: HEPARIN SODIUM 1,000 UNIT/1ML VIAL IV PRN (15:03)
[2022-01-22] MEDS: ATORVASTATIN CALCIUM 40MG TABLET PO SCH (20:48)
[2022-01-23] VITALS (15 sets, daily range): BP systolic 85–126; BP diastolic 42–64
[2022-01-23] MEDS: IPRATROPIUM/ALBUTEROL 0.5-3(2.5)MG/3ML NEB HHN SCH ×3 (03:17→21:39)
[2022-01-23] MEDS: INSULIN LISPRO 100 UNITS/ML SUBCUT SCH ×4 (06:00→23:32)
[2022-01-23] MEDS: BLOOD SUGAR DIAGNOSTIC STRIP TEST SCH ×4 (06:14→23:26)
[2022-01-23 06:32] LABS: BASOPHILS % 0.2 % (0.0-2.0); EOSINOPHILS % 0.3 % (0.0-5.0); HEMATOCRIT. 26.3 % (42.0-52.0); HEMOGLOBIN. 8.9 g/dL (14.0-18.0); LYMPHOCYTES % 7.5 % (20.0-50.0); MEAN CORPUSCULAR HEMOGLOBIN 31.3 pg (28.0-32.0); MEAN CORPUSCULAR VOLUME 92.7 fL (80.0-94.0); MEAN PLATELET VOLUME 10.8 fl (7.4-10.4); MONOCYTES % 8.5 % (2.0-8.0); NEUTROPHILS % 83.5 % (40.0-76.0); PLATELET 124 x1000/uL (130-400); RED BLOOD CELL COUNT 2.84 mill/uL (4.7-6.1); RED CELL DISTRIBUTION WIDTH 14.5 % (11.6-14.6)
[2022-01-23] MEDS: CARVEDILOL 3.125 MG TABLET PO SCH ×2 (09:12→21:33)
[2022-01-23] MEDS: PANTOPRAZOLE SODIUM 40 MG/VIAL IV SCH ×2 (09:12→21:32)
[2022-01-23] MEDS: DOCUSATE SODIUM SUGAR FREE 100MG/10ML UDC NG SCH (09:12)
[2022-01-23] MEDS: RISPERIDONE 0.5MG TABLET PO SCH ×2 (09:12→17:15)
[2022-01-23] MEDS: DEXT 10% WATER 1,000 ML IV SCH (09:13)
[2022-01-23] MEDS ORDERED: CEFEPIME 1,000 MG in DEXTROSE 5% WATER 50 ML IV SCH (12:30)
[2022-01-23] MEDS ORDERED: VANCOMYCIN 500MG PREMIX 100 ML IV SCH (14:00)
[2022-01-23] MEDS: SILVER SULFADIAZINE 1% CREAM 25GM TOP SCH (15:48)
[2022-01-23] MEDS: ATORVASTATIN CALCIUM 40MG TABLET PO SCH (21:33)
[2022-01-24] VITALS (10 sets, daily range): BP systolic 98–118; BP diastolic 47–65
[2022-01-24] MEDS: IPRATROPIUM/ALBUTEROL 0.5-3(2.5)MG/3ML NEB HHN SCH ×4 (00:50→21:48)
[2022-01-24] MEDS: ONDANSETRON HCL 4MG/2ML INJ IV PRN (01:28)
[2022-01-24] MEDS: BLOOD SUGAR DIAGNOSTIC STRIP TEST SCH ×3 (05:36→23:05)
[2022-01-24] MEDS: INSULIN LISPRO 100 UNITS/ML SUBCUT SCH ×2 (05:37→12:00)
[2022-01-24] MEDS: CARVEDILOL 3.125 MG TABLET PO SCH ×2 (08:03→22:36)
[2022-01-24] MEDS: DOCUSATE SODIUM SUGAR FREE 100MG/10ML UDC NG SCH (08:03)
[2022-01-24] MEDS: RISPERIDONE 0.5MG TABLET PO SCH ×2 (08:03→16:19)
[2022-01-24] MEDS: PANTOPRAZOLE SODIUM 40 MG/VIAL IV SCH ×2 (08:03→22:36)
[2022-01-24] MEDS: SILVER SULFADIAZINE 1% CREAM 25GM TOP SCH (08:03)
[2022-01-24] MEDS: DEXT 10% WATER 1,000 ML IV SCH (08:05)
[2022-01-24] MEDS: ATORVASTATIN CALCIUM 40MG TABLET PO SCH (22:36)
[2022-01-25] VITALS (7 sets, daily range): BP systolic 106–143; BP diastolic 45–63
[2022-01-25] MEDS: IPRATROPIUM/ALBUTEROL 0.5-3(2.5)MG/3ML NEB HHN SCH ×2 (01:44→14:30)
[2022-01-25] MEDS: BLOOD SUGAR DIAGNOSTIC STRIP TEST SCH ×4 (05:10→16:53)
[2022-01-25] MEDS: INSULIN LISPRO 100 UNITS/ML SUBCUT SCH ×3 (05:10→16:52)
[2022-01-25 06:29] LABS: BASOPHILS % 0.8 % (0.0-2.0); EOSINOPHILS % 3.3 % (0.0-5.0); HEMATOCRIT. 26.1 % (42.0-52.0); HEMOGLOBIN. 8.7 g/dL (14.0-18.0); LYMPHOCYTES % 9.8 % (20.0-50.0); MEAN CORPUSCULAR HEMOGLOBIN 30.7 pg (28.0-32.0); MEAN CORPUSCULAR VOLUME 92.2 fL (80.0-94.0); MEAN PLATELET VOLUME 10.7 fl (7.4-10.4); MONOCYTES % 10.9 % (2.0-8.0); NEUTROPHILS % 75.2 % (40.0-76.0); PLATELET 173 x1000/uL (130-400); RED BLOOD CELL COUNT 2.83 mill/uL (4.7-6.1); RED CELL DISTRIBUTION WIDTH 15.1 % (11.6-14.6)
[2022-01-25] MEDS: CARVEDILOL 3.125 MG TABLET PO SCH ×2 (09:00→21:08)
[2022-01-25] MEDS: RISPERIDONE 0.5MG TABLET PO SCH ×2 (09:39→16:51)
[2022-01-25] MEDS: DOCUSATE SODIUM SUGAR FREE 100MG/10ML UDC NG SCH (09:39)
[2022-01-25] MEDS: PANTOPRAZOLE SODIUM 40 MG/VIAL IV SCH ×2 (09:39→21:07)
[2022-01-25] MEDS: DEXT 10% WATER 1,000 ML IV SCH (13:55)
[2022-01-25] MEDS: SILVER SULFADIAZINE 1% CREAM 25GM TOP SCH (16:51)
[2022-01-25] MEDS: ATORVASTATIN CALCIUM 40MG TABLET PO SCH (21:08)
[2022-01-26] MEDS: BLOOD SUGAR DIAGNOSTIC STRIP TEST SCH ×5 (00:02→23:46)
[2022-01-26] MEDS: IPRATROPIUM/ALBUTEROL 0.5-3(2.5)MG/3ML NEB HHN SCH ×4 (01:19→21:42)
[2022-01-26 04:00] VITALS: BP 120/55
[2022-01-26] MEDS: INSULIN LISPRO 100 UNITS/ML SUBCUT SCH ×5 (06:00→23:46)
[2022-01-26 08:00] VITALS: BP 103/50
[2022-01-26] MEDS: CARVEDILOL 3.125 MG TABLET PO SCH ×2 (09:00→20:17)
[2022-01-26] MEDS: RISPERIDONE 0.5MG TABLET PO SCH ×2 (09:32→18:56)
[2022-01-26] MEDS: DOCUSATE SODIUM SUGAR FREE 100MG/10ML UDC NG SCH (09:32)
[2022-01-26] MEDS: PANTOPRAZOLE SODIUM 40 MG/VIAL IV SCH ×2 (09:32→20:36)
[2022-01-26] MEDS: SILVER SULFADIAZINE 1% CREAM 25GM TOP SCH (09:33)
[2022-01-26 12:00] VITALS: BP 115/53
[2022-01-26] MEDS ORDERED: VANCOMYCIN 500MG PREMIX 100 ML IV SCH (15:00)
[2022-01-26] MEDS: DEXT 10% WATER 1,000 ML IV SCH (15:16)
[2022-01-26 16:00] VITALS: BP 103/53
[2022-01-26 20:00] VITALS: BP 102/51
[2022-01-26] MEDS: ATORVASTATIN CALCIUM 40MG TABLET PO SCH (20:36)
[2022-01-27] VITALS: BP 102/54
[2022-01-27] MEDS: IPRATROPIUM/ALBUTEROL 0.5-3(2.5)MG/3ML NEB HHN SCH ×4 (02:11→20:16)
[2022-01-27 04:00] VITALS: BP 103/53
[2022-01-27] MEDS: INSULIN LISPRO 100 UNITS/ML SUBCUT SCH ×3 (05:58→18:28)
[2022-01-27] MEDS: BLOOD SUGAR DIAGNOSTIC STRIP TEST SCH ×3 (05:58→18:27)
[2022-01-27 06:53] LABS: HEMATOCRIT. 28.2 % (42.0-52.0); HEMOGLOBIN. 9.2 g/dL (14.0-18.0); MEAN CORPUSCULAR HEMOGLOBIN 30.8 pg (28.0-32.0); MEAN CORPUSCULAR VOLUME 93.9 fL (80.0-94.0); MEAN PLATELET VOLUME 10.3 fl (7.4-10.4); PLATELET 212 x1000/uL (130-400); RED CELL DISTRIBUTION WIDTH 15.2 % (11.6-14.6)
[2022-01-27 08:00] VITALS: BP 115/50
[2022-01-27] MEDS: RISPERIDONE 0.5MG TABLET PO SCH ×2 (09:15→17:57)
[2022-01-27] MEDS: PANTOPRAZOLE SODIUM 40 MG/VIAL IV SCH ×2 (09:15→20:50)
[2022-01-27] MEDS: CARVEDILOL 3.125 MG TABLET PO SCH ×2 (09:15→20:50)
[2022-01-27] MEDS: DOCUSATE SODIUM SUGAR FREE 100MG/10ML UDC NG SCH (09:15)
[2022-01-27] MEDS: DEXT 10% WATER 1,000 ML IV SCH (09:16)
[2022-01-27] MEDS: SILVER SULFADIAZINE 1% CREAM 25GM TOP SCH (09:16)
[2022-01-27 12:00] VITALS: BP 121/54
[2022-01-27 15:30] LABS: PLATELET ESTIMATE NORMAL
[2022-01-27 16:00] VITALS: BP 103/49
[2022-01-27 20:00] VITALS: BP 119/88
[2022-01-27] MEDS: ATORVASTATIN CALCIUM 40MG TABLET PO SCH (20:50)
[2022-01-28] VITALS: BP 139/80
[2022-01-28] MEDS: IPRATROPIUM/ALBUTEROL 0.5-3(2.5)MG/3ML NEB HHN SCH ×4 (02:28→20:57)
[2022-01-28 04:00] VITALS: BP 119/46
[2022-01-28] MEDS: INSULIN LISPRO 100 UNITS/ML SUBCUT SCH ×4 (05:21→17:56)
[2022-01-28] MEDS: BLOOD SUGAR DIAGNOSTIC STRIP TEST SCH ×4 (05:21→17:56)
[2022-01-28 08:00] VITALS: BP 111/50
[2022-01-28 08:28] LABS: HEMATOCRIT. 26.1 % (42.0-52.0); HEMOGLOBIN. 8.8 g/dL (14.0-18.0); MEAN CORPUSCULAR VOLUME 91.6 fL (80.0-94.0); MEAN PLATELET VOLUME 10.2 fl (7.4-10.4); PLATELET 272 x1000/uL (130-400); RED BLOOD CELL COUNT 2.85 mill/uL (4.7-6.1); RED CELL DISTRIBUTION WIDTH 14.8 % (11.6-14.6)
[2022-01-28] MEDS: CARVEDILOL 3.125 MG TABLET PO SCH ×2 (09:52→20:14)
[2022-01-28] MEDS: RISPERIDONE 0.5MG TABLET PO SCH ×2 (09:52→17:53)
[2022-01-28] MEDS: DOCUSATE SODIUM SUGAR FREE 100MG/10ML UDC NG SCH (09:52)
[2022-01-28] MEDS: PANTOPRAZOLE SODIUM 40 MG/VIAL IV SCH ×2 (09:52→20:56)
[2022-01-28] MEDS: SILVER SULFADIAZINE 1% CREAM 25GM TOP SCH (10:00)
[2022-01-28] MEDS: DEXT 10% WATER 1,000 ML IV SCH (10:30)
[2022-01-28 12:00] VITALS: BP 123/56
[2022-01-28 13:56] LABS: PLATELET ESTIMATE NORMAL
[2022-01-28 16:00] VITALS: BP 111/46
[2022-01-28 20:00] VITALS: BP 107/41
[2022-01-28] MEDS: ATORVASTATIN CALCIUM 40MG TABLET PO SCH (20:56)
[2022-01-29] VITALS: BP 104/61
[2022-01-29] MEDS: IPRATROPIUM/ALBUTEROL 0.5-3(2.5)MG/3ML NEB HHN SCH ×4 (02:48→20:07)
[2022-01-29 04:00] VITALS: BP 100/46
[2022-01-29] MEDS: BLOOD SUGAR DIAGNOSTIC STRIP TEST SCH ×4 (05:44→17:34)
[2022-01-29] MEDS: INSULIN LISPRO 100 UNITS/ML SUBCUT SCH ×4 (05:56→17:34)
[2022-01-29 06:46] LABS: HEMATOCRIT. 24.7 % (42.0-52.0); HEMOGLOBIN. 8.3 g/dL (14.0-18.0); MEAN CORPUSCULAR HEMOGLOBIN 30.6 pg (28.0-32.0); MEAN PLATELET VOLUME 10.1 fl (7.4-10.4); PLATELET 296 x1000/uL (130-400); RED BLOOD CELL COUNT 2.71 mill/uL (4.7-6.1); RED CELL DISTRIBUTION WIDTH 14.7 % (11.6-14.6)
[2022-01-29 08:00] VITALS: BP 98/42
[2022-01-29 09:53] LABS: PLATELET ESTIMATE NORMAL
[2022-01-29] MEDS: RISPERIDONE 0.5MG TABLET PO SCH ×2 (09:55→18:21)
[2022-01-29] MEDS: DOCUSATE SODIUM SUGAR FREE 100MG/10ML UDC NG SCH (09:55)
[2022-01-29] MEDS: CARVEDILOL 3.125 MG TABLET PO SCH ×2 (09:56→21:00)
[2022-01-29] MEDS: FOLIC ACID/VITAMIN B COMP W-C TABLET PO SCH (10:04)
[2022-01-29] MEDS: SILVER SULFADIAZINE 1% CREAM 25GM TOP SCH (10:04)
[2022-01-29] MEDS: PANTOPRAZOLE SODIUM 40 MG/VIAL IV SCH ×2 (10:35→22:02)
[2022-01-29 11:25] LABS: PHOSPHORUS 1.2 mg/dL (2.5-4.9)
[2022-01-29 12:00] VITALS: BP 107/62
[2022-01-29 16:00] VITALS: BP 114/52
[2022-01-29] MEDS: CEFEPIME 1,000 MG in DEXTROSE 5% WATER 50 ML IV SCH (18:23)
[2022-01-29 20:00] VITALS: BP 108/55
[2022-01-29] MEDS: ATORVASTATIN CALCIUM 40MG TABLET PO SCH (22:02)
[2022-01-30] VITALS (28 sets, daily range): BP systolic 56–136; BP diastolic 32–87
[2022-01-30] MEDS: IPRATROPIUM/ALBUTEROL 0.5-3(2.5)MG/3ML NEB HHN SCH ×4 (01:08→20:03)
[2022-01-30] MEDS: BLOOD SUGAR DIAGNOSTIC STRIP TEST SCH ×4 (05:15→17:52)
[2022-01-30] MEDS: INSULIN LISPRO 100 UNITS/ML SUBCUT SCH ×4 (05:15→17:52)
[2022-01-30] MEDS ORDERED: SODIUM BICARBONATE 8.4% 1 MEQ/ML 50ML SYR IV ONE (08:25)
[2022-01-30] MEDS ORDERED: DEXTROSE 50% WATER 50ML SYRINGE IV ONE (08:25)
[2022-01-30] MEDS ORDERED: CALCIUM CHLORIDE 1GM/10ML SYR IV ONE (08:25)
[2022-01-30] MEDS ORDERED: EPINEPHRINE 0.1MG/ML (1:10,000) 10ML SYR ONE (08:25)
[2022-01-30] MEDS: SILVER SULFADIAZINE 1% CREAM 25GM TOP SCH (09:00)
[2022-01-30] MEDS: CARVEDILOL 3.125 MG TABLET PO SCH (10:06)
[2022-01-30] MEDS: DOCUSATE SODIUM SUGAR FREE 100MG/10ML UDC NG SCH (10:06)
[2022-01-30] MEDS: FOLIC ACID/VITAMIN B COMP W-C TABLET PO SCH (10:06)
[2022-01-30] MEDS: PANTOPRAZOLE SODIUM 40 MG/VIAL IV SCH ×2 (10:06→20:40)
[2022-01-30] MEDS: RISPERIDONE 0.5MG TABLET PO SCH (10:06)
[2022-01-30] MEDS ORDERED: NOREPINEPHRINE 8 MG in DEXT 5% WATER 242 ML IV PRN (12:45)
[2022-01-30] MEDS: PHENYLEPHRINE 100 MG in DEXT 5% WATER 240 ML IV PRN ×2 (13:03→19:55)
[2022-01-30] MEDS: NOREPINEPHRINE 32 MG in DEXT 5% WATER 218 ML IV PRN (13:24)
[2022-01-30 13:55] LABS: BG BASE EXCESS -1.4 mmol/L (-2.0-2.0); BG CARBOXYHEMOGLOBIN 0.3 % (0.5-1.5); BG DEOXYHEMOGLOBIN 0.7 % (0.0-5.0); BG FRACTION INSPIRED OXYGEN 100; BG HCO3 ACT 23.3 mmol/L (22.0-26.0); BG METHEMOGLOBIN 0.3 % (0.0-1.5); BG OXYGEN SATURATION 99.3 % (92.0-98.5); BG OXYHEMOGLOBIN 98.7 % (94.0-97.0); BG PCO2 38.4 mmHg (35.0-45.0); BG PO2 420.4 mmHg (75.0-100.0); BG SAMPLE SITE RIGHT RADIAL; BG TOTAL HEMOGLOBIN 8.8 g/dL (12.0-18.0); BG VENT MODE VENT - AC
[2022-01-30] MEDS: LORAZEPAM 2MG/ML CPJ IV PRN ×3 (14:10→22:19)
[2022-01-30] MEDS ORDERED: CALCIUM GLUCONATE 100MG/ML 10ML VIAL IV ONE (14:45)
[2022-01-30] MEDS ORDERED: LEVETIRACETAM 500MG PREMIX 100 ML IV NR (15:00)
[2022-01-30] MEDS ORDERED: INSULIN REGULAR (HUMULIN R) 300UNITS/3ML VIAL IV NR (15:15)
[2022-01-30] MEDS ORDERED: CALCIUM GLUCONATE 1GM PREMIX 50 ML IV NR (16:30)
[2022-01-30] MEDS: CEFEPIME 1,000 MG in DEXTROSE 5% WATER 50 ML IV SCH (17:12)
[2022-01-30 19:17] LABS: MEAN CORPUSCULAR HEMOGLOBIN 29.5 pg (28.0-32.0); MEAN CORPUSCULAR VOLUME 94.8 fL (80.0-94.0); MEAN PLATELET VOLUME 10.1 fl (7.4-10.4); PLATELET 396 x1000/uL (130-400); RED BLOOD CELL COUNT 2.35 mill/uL (4.7-6.1); RED CELL DISTRIBUTION WIDTH 15.5 % (11.6-14.6)
[2022-01-30 19:19] LABS: HEMATOCRIT. 22.3 % (42.0-52.0); HEMOGLOBIN. 6.9 g/dL (14.0-18.0)
[2022-01-30] MEDS: ATORVASTATIN CALCIUM 40MG TABLET PO SCH (20:29)
[2022-01-30] MEDS: EPOETIN ALFA-EPBX 4,000 UNIT/ML VIAL SUBCUT SCH (20:40)
[2022-01-30] MEDS ORDERED: LEVETIRACETAM 500MG PREMIX 100 ML IV SCH (21:00)
[2022-01-30 22:02] LABS: PLATELET ESTIMATE NORMAL
[2022-01-31] VITALS (84 sets, daily range): BP systolic 69–209; BP diastolic 19–135
[2022-01-31] MEDS: IPRATROPIUM/ALBUTEROL 0.5-3(2.5)MG/3ML NEB HHN SCH ×4 (00:48→20:20)
[2022-01-31] MEDS ORDERED: LEVETIRACETAM 500 MG in SODIUM CHLORIDE 0.9% 100 ML IV SCH (01:45)
[2022-01-31] MEDS: PHENYLEPHRINE 100 MG in DEXT 5% WATER 240 ML IV PRN ×2 (03:38→11:30)
[2022-01-31 05:49] LABS: HEMOGLOBIN. 7.6 g/dL (14.0-18.0); MEAN CORPUSCULAR HEMOGLOBIN 30.3 pg (28.0-32.0); MEAN CORPUSCULAR VOLUME 92.3 fL (80.0-94.0); MEAN PLATELET VOLUME 9.6 fl (7.4-10.4); PLATELET 410 x1000/uL (130-400); RED CELL DISTRIBUTION WIDTH 15.1 % (11.6-14.6)
[2022-01-31] MEDS: INSULIN LISPRO 100 UNITS/ML SUBCUT SCH ×3 (06:00→12:00)
[2022-01-31] MEDS: BLOOD SUGAR DIAGNOSTIC STRIP TEST SCH ×3 (06:00→12:00)
[2022-01-31] MEDS: LORAZEPAM 2MG/ML CPJ IV PRN ×2 (06:38→09:41)
[2022-01-31] MEDS ORDERED: SODIUM POLYSTYRENE SULFONATE 15 G/60 ML BOT PO NR (08:00)
[2022-01-31] MEDS ORDERED: MIDAZOLAM HCL 2 MG/2 ML VIAL IV NR (08:45)
[2022-01-31 08:50] LABS: BG BASE EXCESS 2.6 mmol/L (-2.0-2.0); BG DEOXYHEMOGLOBIN 7.1 % (0.0-5.0); BG FRACTION INSPIRED OXYGEN 30; BG HCO3 ACT 25.8 mmol/L (22.0-26.0); BG METHEMOGLOBIN 0.3 % (0.0-1.5); BG OXYGEN SATURATION 92.9 % (92.0-98.5); BG OXYHEMOGLOBIN 92.6 % (94.0-97.0); BG PCO2 33.4 mmHg (35.0-45.0); BG PH 7.506 (7.350-7.450); BG PO2 65.3 mmHg (75.0-100.0); BG SAMPLE SITE LEFT BRACHIAL; BG TOTAL HEMOGLOBIN 6.8 g/dL (12.0-18.0); BG VENT MODE VENT - AC
[2022-01-31] MEDS: SILVER SULFADIAZINE 1% CREAM 25GM TOP SCH (09:00)
[2022-01-31 09:11] LABS: PLATELET ESTIMATE SLIGHTLY INCREASED
[2022-01-31] MEDS: DOCUSATE SODIUM SUGAR FREE 100MG/10ML UDC NG SCH (09:38)
[2022-01-31] MEDS: PANTOPRAZOLE SODIUM 40 MG/VIAL IV SCH ×2 (09:39→21:29)
[2022-01-31] MEDS: FOLIC ACID/VITAMIN B COMP W-C TABLET PO SCH (09:39)
[2022-01-31] MEDS: LEVETIRACETAM 1000MG PREMIX 100 ML IV SCH ×2 (09:41→21:29)
[2022-01-31] MEDS ORDERED: MIDAZOLAM 100MG/100ML PMX 100 ML IV PRN (12:15)
[2022-01-31] MEDS ORDERED: MIDAZOLAM HCL 100 MG in SODIUM CHLORIDE 0.9% 100 ML IV PRN (12:45)
[2022-01-31] MEDS: PHENYTOIN SODIUM 100MG/2ML VIAL IV SCH ×2 (14:30→21:29)
[2022-01-31] MEDS: HYDROCORTISONE SOD SUCCINATE 100 MG/2 ML VIAL IV SCH ×2 (14:30→21:29)
[2022-01-31] MEDS: CEFEPIME 1,000 MG in DEXTROSE 5% WATER 50 ML IV SCH (17:49)
[2022-01-31] MEDS: ATORVASTATIN CALCIUM 40MG TABLET PO SCH (21:29)
[2022-02-01] VITALS (98 sets, daily range): BP systolic 94–152; BP diastolic 36–56
[2022-02-01] MEDS: IPRATROPIUM/ALBUTEROL 0.5-3(2.5)MG/3ML NEB HHN SCH ×4 (00:21→20:21)
[2022-02-01 05:22] LABS: HEMATOCRIT. 21.1 % (42.0-52.0); MEAN CORPUSCULAR HEMOGLOBIN 30.5 pg (28.0-32.0); MEAN CORPUSCULAR VOLUME 92.4 fL (80.0-94.0); MEAN PLATELET VOLUME 9.5 fl (7.4-10.4); PLATELET 378 x1000/uL (130-400); RED BLOOD CELL COUNT 2.28 mill/uL (4.7-6.1); RED CELL DISTRIBUTION WIDTH 15.3 % (11.6-14.6)
[2022-02-01] MEDS: PHENYTOIN SODIUM 100MG/2ML VIAL IV SCH ×3 (06:14→22:07)
[2022-02-01] MEDS: HYDROCORTISONE SOD SUCCINATE 100 MG/2 ML VIAL IV SCH ×3 (06:15→22:06)
[2022-02-01 08:48] LABS: BG BASE EXCESS 1.2 mmol/L (-2.0-2.0); BG CARBOXYHEMOGLOBIN 0.1 % (0.5-1.5); BG DEOXYHEMOGLOBIN 5.4 % (0.0-5.0); BG FRACTION INSPIRED OXYGEN 40; BG HCO3 ACT 26.1 mmol/L (22.0-26.0); BG METHEMOGLOBIN 0.3 % (0.0-1.5); BG OXYGEN SATURATION 94.6 % (92.0-98.5); BG OXYHEMOGLOBIN 94.2 % (94.0-97.0); BG PCO2 42.9 mmHg (35.0-45.0); BG PH 7.402 (7.350-7.450); BG PO2 78.2 mmHg (75.0-100.0); BG SAMPLE SITE RIGHT RADIAL; BG TOTAL HEMOGLOBIN 8.3 g/dL (12.0-18.0); BG VENT MODE VENT - AC
[2022-02-01] MEDS: LEVETIRACETAM 1000MG PREMIX 100 ML IV SCH ×2 (09:24→21:00)
[2022-02-01] MEDS: DOCUSATE SODIUM SUGAR FREE 100MG/10ML UDC NG SCH (09:24)
[2022-02-01] MEDS: PANTOPRAZOLE SODIUM 40 MG/VIAL IV SCH ×2 (09:24→22:06)
[2022-02-01] MEDS: FOLIC ACID/VITAMIN B COMP W-C TABLET PO SCH (09:24)
[2022-02-01] MEDS: SILVER SULFADIAZINE 1% CREAM 25GM TOP SCH (09:25)
[2022-02-01 15:28] LABS: HEMATOCRIT 26.4 % (42.0-52.0); HEMOGLOBIN 8.6 g/dL (14.0-18.0)
[2022-02-01 17:13] LABS: PLATELET ESTIMATE NORMAL
[2022-02-01] MEDS: CEFEPIME 1,000 MG in DEXTROSE 5% WATER 50 ML IV SCH (18:08)
[2022-02-01] MEDS: EPOETIN ALFA-EPBX 4,000 UNIT/ML VIAL SUBCUT SCH (22:06)
[2022-02-01] MEDS: ATORVASTATIN CALCIUM 40MG TABLET PO SCH (22:07)
[2022-02-02] VITALS (126 sets, daily range): BP systolic 91–184; BP diastolic 16–76
[2022-02-02] MEDS: IPRATROPIUM/ALBUTEROL 0.5-3(2.5)MG/3ML NEB HHN SCH ×4 (02:06→20:17)
[2022-02-02 05:05] LABS: HEMATOCRIT. 24.8 % (42.0-52.0); HEMOGLOBIN. 8.1 g/dL (14.0-18.0); MEAN CORPUSCULAR VOLUME 88.9 fL (80.0-94.0); MEAN PLATELET VOLUME 9.2 fl (7.4-10.4); PLATELET 292 x1000/uL (130-400); RED BLOOD CELL COUNT 2.79 mill/uL (4.7-6.1); RED CELL DISTRIBUTION WIDTH 16.8 % (11.6-14.6)
[2022-02-02] MEDS: HYDROCORTISONE SOD SUCCINATE 100 MG/2 ML VIAL IV SCH ×3 (05:50→21:14)
[2022-02-02] MEDS: PHENYTOIN SODIUM 100MG/2ML VIAL IV SCH ×3 (05:50→21:14)
[2022-02-02] MEDS: DOCUSATE SODIUM SUGAR FREE 100MG/10ML UDC NG SCH (09:05)
[2022-02-02] MEDS: SILVER SULFADIAZINE 1% CREAM 25GM TOP SCH (09:06)
[2022-02-02] MEDS: FOLIC ACID/VITAMIN B COMP W-C TABLET PO SCH (09:06)
[2022-02-02] MEDS: PANTOPRAZOLE SODIUM 40 MG/VIAL IV SCH ×2 (09:06→21:14)
[2022-02-02] MEDS: LEVETIRACETAM 1000MG PREMIX 100 ML IV SCH ×2 (09:06→21:14)
[2022-02-02 09:10] LABS: BG BASE EXCESS -1.4 mmol/L (-2.0-2.0); BG DEOXYHEMOGLOBIN 2.8 % (0.0-5.0); BG FRACTION INSPIRED OXYGEN 30; BG HCO3 ACT 23.7 mmol/L (22.0-26.0); BG METHEMOGLOBIN 0.2 % (0.0-1.5); BG OXYGEN SATURATION 97.2 % (92.0-98.5); BG PCO2 41.5 mmHg (35.0-45.0); BG PH 7.375 (7.350-7.450); BG PO2 106.6 mmHg (75.0-100.0); BG SAMPLE SITE RIGHT RADIAL; BG TOTAL HEMOGLOBIN 10.3 g/dL (12.0-18.0); BG VENT MODE VENT - AC
[2022-02-02 16:09] LABS: NUCLEATED RED BLOOD CELLS 1 /100 WBC; PLATELET ESTIMATE NORMAL
[2022-02-02] MEDS: CEFEPIME 1,000 MG in DEXTROSE 5% WATER 50 ML IV SCH (18:05)
[2022-02-02] MEDS: ATORVASTATIN CALCIUM 40MG TABLET PO SCH (21:14)
[2022-02-03] VITALS (48 sets, daily range): BP systolic 84–120; BP diastolic 18–73
[2022-02-03] MEDS: IPRATROPIUM/ALBUTEROL 0.5-3(2.5)MG/3ML NEB HHN SCH ×3 (01:32→14:42)
[2022-02-03] MEDS: PHENYTOIN SODIUM 100MG/2ML VIAL IV SCH ×3 (05:02→21:13)
[2022-02-03] MEDS: HYDROCORTISONE SOD SUCCINATE 100 MG/2 ML VIAL IV SCH ×3 (05:02→21:13)
[2022-02-03 05:39] LABS: HEMATOCRIT 25.5 % (42.0-52.0); HEMOGLOBIN 8.4 g/dL (14.0-18.0); MEAN CORPUSCULAR HEMOGLOBIN 29.1 pg (28.0-32.0); MEAN CORPUSCULAR VOLUME 88.5 fL (80.0-94.0); PLATELET 282 x1000/uL (130-400); RED BLOOD CELL COUNT 2.88 mill/uL (4.7-6.1); RED CELL DISTRIBUTION WIDTH 16.4 % (11.6-14.6)
[2022-02-03 06:02] LABS: CHLORIDE 99 mEq/L (98-107)
[2022-02-03] MEDS ORDERED: SODIUM POLYSTYRENE SULFONATE 15 G/60 ML BOT PO NR (07:00)
[2022-02-03 08:57] LABS: BG BASE EXCESS -4.4 mmol/L (-2.0-2.0); BG CARBOXYHEMOGLOBIN 0.2 % (0.5-1.5); BG DEOXYHEMOGLOBIN 3.9 % (0.0-5.0); BG FRACTION INSPIRED OXYGEN 30; BG HCO3 ACT 20.6 mmol/L (22.0-26.0); BG METHEMOGLOBIN 0.2 % (0.0-1.5); BG OXYGEN SATURATION 96.1 % (92.0-98.5); BG OXYHEMOGLOBIN 95.7 % (94.0-97.0); BG PCO2 37.9 mmHg (35.0-45.0); BG PH 7.354 (7.350-7.450); BG PO2 96.5 mmHg (75.0-100.0); BG SAMPLE SITE RIGHT RADIAL; BG TOTAL HEMOGLOBIN 10.1 g/dL (12.0-18.0); BG VENT MODE VENT - AC
[2022-02-03] MEDS: SILVER SULFADIAZINE 1% CREAM 25GM TOP SCH (09:00)
[2022-02-03] MEDS: DOCUSATE SODIUM SUGAR FREE 100MG/10ML UDC NG SCH (09:41)
[2022-02-03] MEDS: PANTOPRAZOLE SODIUM 40 MG/VIAL IV SCH ×2 (09:42→21:13)
[2022-02-03] MEDS: LEVETIRACETAM 1000MG PREMIX 100 ML IV SCH ×2 (09:42→21:13)
[2022-02-03] MEDS: FOLIC ACID/VITAMIN B COMP W-C TABLET PO SCH (09:42)
[2022-02-03] MEDS: CEFEPIME 1,000 MG in DEXTROSE 5% WATER 50 ML IV SCH (18:26)
[2022-02-03] MEDS: NOREPINEPHRINE 32 MG in DEXT 5% WATER 218 ML IV PRN (19:27)
[2022-02-03] MEDS ORDERED: IPRATROPIUM/ALBUTEROL 0.5-3(2.5)MG/3ML NEB HHN PRN (20:30)
[2022-02-03] MEDS: ATORVASTATIN CALCIUM 40MG TABLET PO SCH (21:13)
[2022-02-03] MEDS: EPOETIN ALFA-EPBX 4,000 UNIT/ML VIAL SUBCUT SCH (21:13)
[2022-02-04] VITALS (36 sets, daily range): BP systolic 90–136; BP diastolic 34–55
[2022-02-04] MEDS: IPRATROPIUM/ALBUTEROL 0.5-3(2.5)MG/3ML NEB HHN SCH ×6 (01:03→20:48)
[2022-02-04] MEDS: PHENYTOIN SODIUM 100MG/2ML VIAL IV SCH ×3 (05:05→21:45)
[2022-02-04] MEDS: HYDROCORTISONE SOD SUCCINATE 100 MG/2 ML VIAL IV SCH ×3 (05:05→21:45)
[2022-02-04 05:52] LABS: HEMATOCRIT. 26.8 % (42.0-52.0); HEMOGLOBIN. 8.7 g/dL (14.0-18.0); MEAN CORPUSCULAR HEMOGLOBIN 28.7 pg (28.0-32.0); MEAN CORPUSCULAR VOLUME 88.2 fL (80.0-94.0); MEAN PLATELET VOLUME 9.9 fl (7.4-10.4); PLATELET 345 x1000/uL (130-400); RED BLOOD CELL COUNT 3.03 mill/uL (4.7-6.1); RED CELL DISTRIBUTION WIDTH 16.7 % (11.6-14.6)
[2022-02-04] MEDS ORDERED: SODIUM POLYSTYRENE SULFONATE 15 G/60 ML BOT PO SCH (07:15)
[2022-02-04 07:45] LABS: NUCLEATED RED BLOOD CELLS 2 /100 WBC
[2022-02-04 07:46] LABS: PLATELET ESTIMATE NORMAL
[2022-02-04] MEDS: PANTOPRAZOLE SODIUM 40 MG/VIAL IV SCH ×2 (08:10→21:45)
[2022-02-04] MEDS: DOCUSATE SODIUM SUGAR FREE 100MG/10ML UDC NG SCH (08:11)
[2022-02-04] MEDS: FOLIC ACID/VITAMIN B COMP W-C TABLET PO SCH (08:11)
[2022-02-04] MEDS: LEVETIRACETAM 1000MG PREMIX 100 ML IV SCH ×2 (08:11→21:45)
[2022-02-04] MEDS: SILVER SULFADIAZINE 1% CREAM 25GM TOP SCH (08:11)
[2022-02-04 09:26] LABS: BG BASE EXCESS -2.6 mmol/L (-2.0-2.0); BG CARBOXYHEMOGLOBIN 0.1 % (0.5-1.5); BG DEOXYHEMOGLOBIN 6.3 % (0.0-5.0); BG FRACTION INSPIRED OXYGEN 30; BG METHEMOGLOBIN 0.3 % (0.0-1.5); BG OXYGEN SATURATION 93.7 % (92.0-98.5); BG OXYHEMOGLOBIN 93.3 % (94.0-97.0); BG PCO2 37.4 mmHg (35.0-45.0); BG PH 7.388 (7.350-7.450); BG PO2 74.8 mmHg (75.0-100.0); BG SAMPLE SITE RIGHT RADIAL; BG TOTAL HEMOGLOBIN 8.8 g/dL (12.0-18.0); BG VENT MODE VENT - AC
[2022-02-04] MEDS: MEROPENEM 1,000 MG in SODIUM CHLORIDE 0.9% 100 ML IV SCH (18:15)
[2022-02-04] MEDS ORDERED: VANCOMYCIN 1500MG in DEXTROSE 5% WATER 250ML IV NR (20:00)
[2022-02-04] MEDS ORDERED: PROPOFOL 10MG/ML 100ML 100 ML IV PRN (21:45)
[2022-02-04] MEDS: ATORVASTATIN CALCIUM 40MG TABLET PO SCH (21:45)
[2022-02-05] VITALS (58 sets, daily range): BP systolic 92–124; BP diastolic 38–67
[2022-02-05] MEDS: IPRATROPIUM/ALBUTEROL 0.5-3(2.5)MG/3ML NEB HHN SCH ×6 (00:20→20:20)
[2022-02-05] MEDS: PHENYTOIN SODIUM 100MG/2ML VIAL IV SCH ×3 (05:19→21:39)
[2022-02-05] MEDS: HYDROCORTISONE SOD SUCCINATE 100 MG/2 ML VIAL IV SCH ×3 (05:19→21:39)
[2022-02-05 05:27] LABS: HEMATOCRIT. 24.9 % (42.0-52.0); HEMOGLOBIN. 8.3 g/dL (14.0-18.0); MEAN CORPUSCULAR HEMOGLOBIN 29.2 pg (28.0-32.0); MEAN CORPUSCULAR VOLUME 87.9 fL (80.0-94.0); MEAN PLATELET VOLUME 9.7 fl (7.4-10.4); PLATELET 313 x1000/uL (130-400); RED BLOOD CELL COUNT 2.84 mill/uL (4.7-6.1); RED CELL DISTRIBUTION WIDTH 16.3 % (11.6-14.6)
[2022-02-05 08:56] LABS: NUCLEATED RED BLOOD CELLS 1 /100 WBC
[2022-02-05 08:57] LABS: PLATELET ESTIMATE NORMAL
[2022-02-05] MEDS: FOLIC ACID/VITAMIN B COMP W-C TABLET PO SCH (09:10)
[2022-02-05] MEDS: PANTOPRAZOLE SODIUM 40 MG/VIAL IV SCH ×2 (09:10→21:39)
[2022-02-05] MEDS: LEVETIRACETAM 1000MG PREMIX 100 ML IV SCH ×2 (09:10→21:39)
[2022-02-05] MEDS: DOCUSATE SODIUM SUGAR FREE 100MG/10ML UDC NG SCH (09:10)
[2022-02-05] MEDS: SILVER SULFADIAZINE 1% CREAM 25GM TOP SCH (09:11)
[2022-02-05 13:55] LABS: BG CARBOXYHEMOGLOBIN 0.4 % (0.5-1.5); BG DEOXYHEMOGLOBIN 3.3 % (0.0-5.0); BG FRACTION INSPIRED OXYGEN 40; BG METHEMOGLOBIN 0.3 % (0.0-1.5); BG OXYGEN SATURATION 96.7 % (92.0-98.5); BG PCO2 36.4 mmHg (35.0-45.0); BG PH 7.358 (7.350-7.450); BG PO2 98.1 mmHg (75.0-100.0); BG SAMPLE SITE LEFT RADIAL; BG TOTAL HEMOGLOBIN 8.3 g/dL (12.0-18.0); BG VENT MODE VENT - AC
[2022-02-05] MEDS: MEROPENEM 1,000 MG in SODIUM CHLORIDE 0.9% 100 ML IV SCH (18:45)
[2022-02-05] MEDS: MIDODRINE HCL 5MG TABLET PO SCH (18:46)
[2022-02-05] MEDS: ATORVASTATIN CALCIUM 40MG TABLET PO SCH (21:39)
[2022-02-06] VITALS (48 sets, daily range): BP systolic 81–133; BP diastolic 38–60
[2022-02-06] MEDS: IPRATROPIUM/ALBUTEROL 0.5-3(2.5)MG/3ML NEB HHN SCH ×6 (00:01→21:00)
[2022-02-06] MEDS: PHENYTOIN SODIUM 100MG/2ML VIAL IV SCH ×3 (05:34→22:09)
[2022-02-06] MEDS: HYDROCORTISONE SOD SUCCINATE 100 MG/2 ML VIAL IV SCH ×3 (05:34→22:09)
[2022-02-06 05:38] LABS: HEMATOCRIT. 23.9 % (42.0-52.0); HEMOGLOBIN. 7.9 g/dL (14.0-18.0); MEAN CORPUSCULAR HEMOGLOBIN 29.1 pg (28.0-32.0); MEAN CORPUSCULAR VOLUME 87.7 fL (80.0-94.0); MEAN PLATELET VOLUME 9.9 fl (7.4-10.4); PLATELET 242 x1000/uL (130-400); RED BLOOD CELL COUNT 2.73 mill/uL (4.7-6.1); RED CELL DISTRIBUTION WIDTH 16.2 % (11.6-14.6)
[2022-02-06] MEDS: DOCUSATE SODIUM SUGAR FREE 100MG/10ML UDC NG SCH (08:07)
[2022-02-06] MEDS: FOLIC ACID/VITAMIN B COMP W-C TABLET PO SCH (08:07)
[2022-02-06] MEDS: PANTOPRAZOLE SODIUM 40 MG/VIAL IV SCH ×2 (08:08→21:05)
[2022-02-06] MEDS: MIDODRINE HCL 5MG TABLET PO SCH ×3 (08:08→17:35)
[2022-02-06] MEDS: LEVETIRACETAM 1000MG PREMIX 100 ML IV SCH ×2 (08:08→21:06)
[2022-02-06] MEDS: SILVER SULFADIAZINE 1% CREAM 25GM TOP SCH (08:17)
[2022-02-06 08:29] LABS: NUCLEATED RED BLOOD CELLS 1 /100 WBC; PLATELET ESTIMATE NORMAL
[2022-02-06 09:03] LABS: BG BASE EXCESS -5.3 mmol/L (-2.0-2.0); BG CARBOXYHEMOGLOBIN 0.1 % (0.5-1.5); BG DEOXYHEMOGLOBIN 4.4 % (0.0-5.0); BG FRACTION INSPIRED OXYGEN 40; BG HCO3 ACT 20.8 mmol/L (22.0-26.0); BG METHEMOGLOBIN 0.3 % (0.0-1.5); BG OXYGEN SATURATION 95.6 % (92.0-98.5); BG OXYHEMOGLOBIN 95.2 % (94.0-97.0); BG PH 7.302 (7.350-7.450); BG PO2 96.6 mmHg (75.0-100.0); BG SAMPLE SITE RIGHT RADIAL; BG TOTAL HEMOGLOBIN 9.1 g/dL (12.0-18.0); BG VENT MODE VENT - AC
[2022-02-06] MEDS: MEROPENEM 1,000 MG in SODIUM CHLORIDE 0.9% 100 ML IV SCH (17:35)
[2022-02-06] MEDS ORDERED: VANCOMYCIN 500MG PREMIX 100 ML IV NR (18:00)
[2022-02-06] MEDS: ATORVASTATIN CALCIUM 40MG TABLET PO SCH (21:05)
[2022-02-07] VITALS (83 sets, daily range): BP systolic 97–140; BP diastolic 43–64
[2022-02-07] MEDS: IPRATROPIUM/ALBUTEROL 0.5-3(2.5)MG/3ML NEB HHN SCH ×6 (00:33→20:45)
[2022-02-07 06:05] LABS: HEMATOCRIT 24.6 % (42.0-52.0); HEMOGLOBIN 8.3 g/dL (14.0-18.0); MEAN CORPUSCULAR HEMOGLOBIN 29.2 pg (28.0-32.0); MEAN CORPUSCULAR VOLUME 86.7 fL (80.0-94.0); PLATELET 290 x1000/uL (130-400); RED BLOOD CELL COUNT 2.83 mill/uL (4.7-6.1); RED CELL DISTRIBUTION WIDTH 16.4 % (11.6-14.6)
[2022-02-07] MEDS: PHENYTOIN SODIUM 100MG/2ML VIAL IV SCH ×3 (06:13→21:43)
[2022-02-07] MEDS: HYDROCORTISONE SOD SUCCINATE 100 MG/2 ML VIAL IV SCH (06:13)
[2022-02-07 06:37] LABS: CHLORIDE 100 mEq/L (98-107)
[2022-02-07 08:38] LABS: BG BASE EXCESS -2.2 mmol/L (-2.0-2.0); BG CARBOXYHEMOGLOBIN 0.4 % (0.5-1.5); BG DEOXYHEMOGLOBIN 2.8 % (0.0-5.0); BG FRACTION INSPIRED OXYGEN 40; BG HCO3 ACT 22.3 mmol/L (22.0-26.0); BG METHEMOGLOBIN 0.5 % (0.0-1.5); BG OXYGEN SATURATION 97.2 % (92.0-98.5); BG OXYHEMOGLOBIN 96.3 % (94.0-97.0); BG PCO2 36.7 mmHg (35.0-45.0); BG PH 7.401 (7.350-7.450); BG PO2 101.8 mmHg (75.0-100.0); BG SAMPLE SITE LEFT RADIAL; BG TOTAL HEMOGLOBIN 8.4 g/dL (12.0-18.0); BG VENT MODE VENT - AC
[2022-02-07] MEDS: SILVER SULFADIAZINE 1% CREAM 25GM TOP SCH (09:23)
[2022-02-07] MEDS: MIDODRINE HCL 5MG TABLET PO SCH ×3 (09:23→17:19)
[2022-02-07] MEDS: FOLIC ACID/VITAMIN B COMP W-C TABLET PO SCH (09:23)
[2022-02-07] MEDS: LEVETIRACETAM 1000MG PREMIX 100 ML IV SCH ×2 (09:24→21:43)
[2022-02-07] MEDS: DOCUSATE SODIUM SUGAR FREE 100MG/10ML UDC NG SCH (09:24)
[2022-02-07] MEDS: PANTOPRAZOLE SODIUM 40 MG/VIAL IV SCH ×2 (10:27→21:43)
[2022-02-07 13:22] LABS: INR 1.6; PROTHROMBIN TIME 16.2 sec (9.6-11.0)
[2022-02-07] MEDS: MEROPENEM 1,000 MG in SODIUM CHLORIDE 0.9% 100 ML IV SCH (17:19)
[2022-02-07] MEDS: MICAFUNGIN 100 MG in SODIUM CHLORIDE 0.9% 100 ML IV SCH (18:57)
[2022-02-08] VITALS (96 sets, daily range): BP systolic 86–194; BP diastolic 33–80
[2022-02-08] MEDS: IPRATROPIUM/ALBUTEROL 0.5-3(2.5)MG/3ML NEB HHN SCH ×5 (00:09→16:46)
[2022-02-08 04:34] LABS: HEMOGLOBIN. 7.8 g/dL (14.0-18.0); MEAN CORPUSCULAR HEMOGLOBIN 29.1 pg (28.0-32.0); MEAN CORPUSCULAR VOLUME 86.3 fL (80.0-94.0); MEAN PLATELET VOLUME 10.1 fl (7.4-10.4); PLATELET 246 x1000/uL (130-400); RED BLOOD CELL COUNT 2.67 mill/uL (4.7-6.1); RED CELL DISTRIBUTION WIDTH 16.4 % (11.6-14.6)
[2022-02-08] MEDS: PHENYTOIN SODIUM 100MG/2ML VIAL IV SCH ×3 (05:48→22:27)
[2022-02-08 07:13] LABS: ATYPICAL LYMPHOCYTES 5; PLATELET ESTIMATE NORMAL
[2022-02-08] MEDS: FOLIC ACID/VITAMIN B COMP W-C TABLET PO SCH (08:18)
[2022-02-08] MEDS: PANTOPRAZOLE SODIUM 40 MG/VIAL IV SCH ×2 (08:18→22:26)
[2022-02-08] MEDS: DOCUSATE SODIUM SUGAR FREE 100MG/10ML UDC NG SCH (08:18)
[2022-02-08] MEDS: MIDODRINE HCL 5MG TABLET PO SCH (08:18)
[2022-02-08] MEDS: SILVER SULFADIAZINE 1% CREAM 25GM TOP SCH (08:19)
[2022-02-08] MEDS: LEVETIRACETAM 1000MG PREMIX 100 ML IV SCH ×2 (08:19→22:27)
[2022-02-08] MEDS ORDERED: HYDRALAZINE 20MG/ML VIAL IV PRN ×2 (08:45→14:45)
[2022-02-08] MEDS ORDERED: PREDNISONE 20MG TABLET PO SCH (09:00)
[2022-02-08] MEDS: AMLODIPINE 10MG TABLET PO SCH (09:30)
[2022-02-08] MEDS: CARVEDILOL 3.125 MG TABLET PO SCH ×2 (09:46→21:00)
[2022-02-08] MEDS: BLOOD SUGAR DIAGNOSTIC STRIP TEST SCH ×3 (10:59→21:00)
[2022-02-08] MEDS: INSULIN LISPRO 100 UNITS/ML SUBCUT SCH ×3 (11:06→22:33)
[2022-02-08 11:16] LABS: BG BASE EXCESS -0.9 mmol/L (-2.0-2.0); BG CARBOXYHEMOGLOBIN 0.3 % (0.5-1.5); BG DEOXYHEMOGLOBIN 4.3 % (0.0-5.0); BG FRACTION INSPIRED OXYGEN 50; BG METHEMOGLOBIN 0.2 % (0.0-1.5); BG OXYGEN SATURATION 95.7 % (92.0-98.5); BG OXYHEMOGLOBIN 95.2 % (94.0-97.0); BG PCO2 35.1 mmHg (35.0-45.0); BG PH 7.434 (7.350-7.450); BG SAMPLE SITE RIGHT RADIAL; BG TOTAL HEMOGLOBIN 10.2 g/dL (12.0-18.0); BG VENT MODE VENT - AC
[2022-02-08] MEDS: MEROPENEM 1,000 MG in SODIUM CHLORIDE 0.9% 100 ML IV SCH (17:00)
[2022-02-08] MEDS: NOREPINEPHRINE 32 MG in DEXT 5% WATER 218 ML IV PRN (17:20)
[2022-02-08] MEDS: MICAFUNGIN 100 MG in SODIUM CHLORIDE 0.9% 100 ML IV SCH (17:35)
[2022-02-08] MEDS ORDERED: VANCOMYCIN 500MG PREMIX 100 ML IV SCH (21:00)
[2022-02-09] VITALS (72 sets, daily range): BP systolic 74–221; BP diastolic 34–95
[2022-02-09] MEDS: BLOOD SUGAR DIAGNOSTIC STRIP TEST SCH ×4 (05:42→20:50)
[2022-02-09] MEDS: PHENYTOIN SODIUM 100MG/2ML VIAL IV SCH (05:42)
[2022-02-09 05:52] LABS: HEMATOCRIT. 25.7 % (42.0-52.0); HEMOGLOBIN. 8.5 g/dL (14.0-18.0); MEAN CORPUSCULAR HEMOGLOBIN 28.9 pg (28.0-32.0); MEAN CORPUSCULAR VOLUME 87.7 fL (80.0-94.0); MEAN PLATELET VOLUME 10.3 fl (7.4-10.4); PLATELET 205 x1000/uL (130-400); RED BLOOD CELL COUNT 2.93 mill/uL (4.7-6.1); RED CELL DISTRIBUTION WIDTH 16.5 % (11.6-14.6)
[2022-02-09] MEDS: INSULIN LISPRO 100 UNITS/ML SUBCUT SCH ×4 (06:12→20:49)
[2022-02-09 07:39] LABS: BG BASE EXCESS -1.8 mmol/L (-2.0-2.0); BG CARBOXYHEMOGLOBIN 0.4 % (0.5-1.5); BG DEOXYHEMOGLOBIN 5.1 % (0.0-5.0); BG HCO3 ACT 22.7 mmol/L (22.0-26.0); BG METHEMOGLOBIN 0.3 % (0.0-1.5); BG OXYGEN SATURATION 94.9 % (92.0-98.5); BG OXYHEMOGLOBIN 94.2 % (94.0-97.0); BG PH 7.405 (7.350-7.450); BG PO2 83.1 mmHg (75.0-100.0); BG SAMPLE SITE RIGHT RADIAL; BG TOTAL HEMOGLOBIN 8.1 g/dL (12.0-18.0); BG VENT MODE VENT - AC
[2022-02-09] MEDS: AMLODIPINE 10MG TABLET PO SCH (09:00)
[2022-02-09] MEDS: CARVEDILOL 3.125 MG TABLET PO SCH (09:00)
[2022-02-09] MEDS: IPRATROPIUM/ALBUTEROL 0.5-3(2.5)MG/3ML NEB HHN SCH ×4 (09:24→19:54)
[2022-02-09] MEDS: PANTOPRAZOLE SODIUM 40 MG/VIAL IV SCH ×2 (09:50→20:26)
[2022-02-09] MEDS: DEXAMETHASONE 4MG TABLET PO SCH (09:51)
[2022-02-09] MEDS: FOLIC ACID/VITAMIN B COMP W-C TABLET PO SCH (09:51)
[2022-02-09] MEDS: DOCUSATE SODIUM SUGAR FREE 100MG/10ML UDC NG SCH (09:51)
[2022-02-09] MEDS: LEVETIRACETAM 1000MG PREMIX 100 ML IV SCH ×2 (09:54→20:26)
[2022-02-09] MEDS ORDERED: INSULIN GLARGINE 100 UNITS/ML SUBCUT SCH (10:00)
[2022-02-09 11:13] LABS: NUCLEATED RED BLOOD CELLS 3 /100 WBC; PLATELET ESTIMATE NORMAL
[2022-02-09] MEDS: SILVER SULFADIAZINE 1% CREAM 25GM TOP SCH (15:45)
[2022-02-09] MEDS ORDERED: ATROPINE SULFATE 1MG/10ML SYR IV STA (16:16)
[2022-02-09] MEDS: MEROPENEM 1,000 MG in SODIUM CHLORIDE 0.9% 100 ML IV SCH (17:03)
[2022-02-09] MEDS ORDERED: ATROPINE SULFATE 1MG/10ML SYR IV PRN (18:00)
[2022-02-09] MEDS: MICAFUNGIN 100 MG in SODIUM CHLORIDE 0.9% 100 ML IV SCH (18:18)
[2022-02-09] MEDS: PHENYTOIN SODIUM EXTENDED 100MG CAPSULE PO SCH (20:26)
[2022-02-09] MEDS: INSULIN GLARGINE 100 UNITS/ML SUBCUT SCH (21:11)
[2022-02-10] VITALS (97 sets, daily range): BP systolic 82–158; BP diastolic 31–74
[2022-02-10] MEDS: IPRATROPIUM/ALBUTEROL 0.5-3(2.5)MG/3ML NEB HHN SCH ×5 (03:57→20:08)
[2022-02-10] MEDS: DOPAMINE 800MG PREMIX (DOUBLE) 250 ML IV PRN (04:51)
[2022-02-10 04:57] LABS: HEMATOCRIT. 28.6 % (42.0-52.0); HEMOGLOBIN. 9.4 g/dL (14.0-18.0); MEAN CORPUSCULAR HEMOGLOBIN 28.7 pg (28.0-32.0); MEAN CORPUSCULAR VOLUME 87.5 fL (80.0-94.0); MEAN PLATELET VOLUME 10.7 fl (7.4-10.4); PLATELET 184 x1000/uL (130-400); RED BLOOD CELL COUNT 3.27 mill/uL (4.7-6.1); RED CELL DISTRIBUTION WIDTH 16.8 % (11.6-14.6)
[2022-02-10] MEDS: BLOOD SUGAR DIAGNOSTIC STRIP TEST SCH ×4 (06:05→23:47)
[2022-02-10] MEDS: INSULIN LISPRO 100 UNITS/ML SUBCUT SCH ×4 (06:05→21:20)
[2022-02-10] MEDS: LEVETIRACETAM 1000MG PREMIX 100 ML IV SCH ×2 (08:00→21:18)
[2022-02-10] MEDS: FOLIC ACID/VITAMIN B COMP W-C TABLET PO SCH (08:00)
[2022-02-10] MEDS: DOCUSATE SODIUM SUGAR FREE 100MG/10ML UDC NG SCH (08:00)
[2022-02-10] MEDS: AMLODIPINE 10MG TABLET PO SCH (08:00)
[2022-02-10] MEDS: DEXAMETHASONE 4MG TABLET PO SCH (08:00)
[2022-02-10] MEDS: SILVER SULFADIAZINE 1% CREAM 25GM TOP SCH (08:01)
[2022-02-10] MEDS: INSULIN GLARGINE 100 UNITS/ML SUBCUT SCH ×3 (09:32→21:19)
[2022-02-10 10:36] LABS: BG BASE EXCESS -8.4 mmol/L (-2.0-2.0); BG CARBOXYHEMOGLOBIN 0.5 % (0.5-1.5); BG DEOXYHEMOGLOBIN 2.2 % (0.0-5.0); BG FRACTION INSPIRED OXYGEN 100; BG HCO3 ACT 18.1 mmol/L (22.0-26.0); BG OXYGEN SATURATION 97.8 % (92.0-98.5); BG OXYHEMOGLOBIN 97.3 % (94.0-97.0); BG PCO2 40.7 mmHg (35.0-45.0); BG PH 7.265 (7.350-7.450); BG PO2 121.4 mmHg (75.0-100.0); BG SAMPLE SITE LEFT RADIAL; BG TOTAL HEMOGLOBIN 11.1 g/dL (12.0-18.0); BG VENT MODE VENT - AC
[2022-02-10 10:56] LABS: PHOSPHORUS 7.7 mg/dL (2.5-4.9)
[2022-02-10] MEDS ORDERED: LIDOCAINE HCL/PF 1% 10 MG/ML 5ML VIAL ONE (11:01)
[2022-02-10] MEDS: METOCLOPRAMIDE HCL 10MG/2ML VIAL IV SCH ×3 (11:48→23:55)
[2022-02-10] MEDS ORDERED: VANCOMYCIN 750MG PREMIX 150 ML IV SCH (14:00)
[2022-02-10] MEDS: MEROPENEM 1,000 MG in SODIUM CHLORIDE 0.9% 100 ML IV SCH (17:54)
[2022-02-10] MEDS: MICAFUNGIN 100 MG in SODIUM CHLORIDE 0.9% 100 ML IV SCH (17:54)
[2022-02-10 18:35] LABS: BG BASE EXCESS -10.2 mmol/L (-2.0-2.0); BG CARBOXYHEMOGLOBIN 0.3 % (0.5-1.5); BG FRACTION INSPIRED OXYGEN 100; BG HCO3 ACT 17.2 mmol/L (22.0-26.0); BG METHEMOGLOBIN 0.2 % (0.0-1.5); BG OXYHEMOGLOBIN 98.5 % (94.0-97.0); BG PH 7.209 (7.350-7.450); BG PO2 238.9 mmHg (75.0-100.0); BG SAMPLE SITE LEFT RADIAL; BG VENT MODE VENT - AC
[2022-02-10] MEDS: PHENYTOIN SODIUM EXTENDED 100MG CAPSULE PO SCH (21:18)
[2022-02-10 23:24] LABS: PLATELET ESTIMATE NORMAL
[2022-02-11] VITALS (63 sets, daily range): BP systolic 57–126; BP diastolic 32–70
[2022-02-11] MEDS: IPRATROPIUM/ALBUTEROL 0.5-3(2.5)MG/3ML NEB HHN SCH ×4 (00:13→12:20)
[2022-02-11] MEDS: DOPAMINE 800MG PREMIX (DOUBLE) 250 ML IV PRN ×2 (00:40→10:28)
[2022-02-11] MEDS: PHENYLEPHRINE 100 MG in DEXT 5% WATER 240 ML IV PRN ×2 (05:23→11:44)
[2022-02-11 05:32] LABS: HEMATOCRIT. 29.8 % (42.0-52.0); HEMOGLOBIN. 9.5 g/dL (14.0-18.0); MEAN CORPUSCULAR HEMOGLOBIN 28.8 pg (28.0-32.0); MEAN CORPUSCULAR VOLUME 90.3 fL (80.0-94.0); RED CELL DISTRIBUTION WIDTH 17.5 % (11.6-14.6)
[2022-02-11] MEDS: METOCLOPRAMIDE HCL 10MG/2ML VIAL IV SCH ×2 (06:00→11:44)
[2022-02-11] MEDS: INSULIN LISPRO 100 UNITS/ML SUBCUT SCH ×2 (06:00→11:11)
[2022-02-11] MEDS: BLOOD SUGAR DIAGNOSTIC STRIP TEST SCH ×2 (06:30→11:40)
[2022-02-11] MEDS ORDERED: SODIUM BICARBONATE 8.4% 1 MEQ/ML 50ML SYR IV NR ×2 (06:30→08:30)
[2022-02-11 06:49] LABS: PLATELET 202 x1000/uL (130-400)
[2022-02-11 06:54] LABS: NUCLEATED RED BLOOD CELLS 27 /100 WBC
[2022-02-11 06:55] LABS: PLATELET ESTIMATE NORMAL
[2022-02-11] MEDS: AMLODIPINE 10MG TABLET PO SCH (07:35)
[2022-02-11 07:49] LABS: BG BASE EXCESS -11.5 mmol/L (-2.0-2.0); BG HCO3 ACT 17.5 mmol/L (22.0-26.0); BG PH 7.153 (7.350-7.450); BG PO2 76.1 mmHg (75.0-100.0); BG SAMPLE SITE RIGHT RADIAL; BG VENT MODE VENT - AC
[2022-02-11] MEDS: DOCUSATE SODIUM SUGAR FREE 100MG/10ML UDC NG SCH (08:36)
[2022-02-11] MEDS: FOLIC ACID/VITAMIN B COMP W-C TABLET PO SCH (08:36)
[2022-02-11] MEDS: SILVER SULFADIAZINE 1% CREAM 25GM TOP SCH (08:37)
[2022-02-11] MEDS: LEVETIRACETAM 1000MG PREMIX 100 ML IV SCH (08:37)
[2022-02-11] MEDS ORDERED: DEXAMETHASONE 10 MG/ML VIAL IV SCH (09:00)
[2022-02-11] MEDS ORDERED: SODIUM POLYSTYRENE SULFONATE 15 G/60 ML BOT PO SCH (09:00)
[2022-02-11] MEDS: NOREPINEPHRINE 32 MG in DEXT 5% WATER 218 ML IV PRN (09:41)
[2022-02-11] MEDS: INSULIN GLARGINE 100 UNITS/ML SUBCUT SCH (10:00)
[2022-02-11] MEDS ORDERED: VASOPRESSIN 20 UNIT in SODIUM CHLORIDE 0.9% 99 ML IV PRN (10:00)
[2022-02-11] MEDS: DEXTROSE 50% WATER 50ML SYRINGE IV PRN ×2 (10:42→11:44)
[2022-02-11] MEDS ORDERED: SODIUM BICARBONATE 100 MEQ in DEXTROSE 5% WATER 1,000 ML IV SCH (11:00)
== END 2022-02-11 18:24 | DRG 870 ==
LOC: ER 16:47 → CVICU 01-03 02:31 → 5EST 01-08 12:30 → 7WST 01-10 10:40 → 5EST 01-14 16:09 → 8WST 01-24 19:02 → MICUSO 01-30 12:27 → CVICU 02-06 10:05 → MICUSO 02-07 14:15
PROVIDERS: ADMIT Internal Medicine; ATTEND Internal Medicine
PROC: 5A1955Z Respiratory Ventilation, Greater than 96 Consecutive Hours (ICD-10-PCS; 2022-01-02)
PROC: 0BH17EZ Insertion of Endotracheal Airway into Trachea, Via Natural or Artificial Opening (ICD-10-PCS; 2022-01-02)
PROC: 02HV33Z Insertion of Infusion Device into Superior Vena Cava, Percutaneous Approach (ICD-10-PCS; 2022-01-03)
PROC: B548ZZA Ultrasonography of Superior Vena Cava, Guidance (ICD-10-PCS; 2022-01-03)
PROC: 4A10X4Z Monitoring of Central Nervous Electrical Activity, External Approach (ICD-10-PCS; 2022-01-03)
PROC: 30233N1 Transfusion of Nonautologous Red Blood Cells into Peripheral Vein, Percutaneous Approach (ICD-10-PCS; 2022-01-13)
PROC: 5A1D70Z Performance of Urinary Filtration, Intermittent, Less than 6 Hours Per Day (ICD-10-PCS; 2022-01-13)
PROC: 5A09457 Assistance with Respiratory Ventilation, 24-96 Consecutive Hours, Continuous Positive Airway Pressure (ICD-10-PCS; 2022-01-14)
PROC: B548ZZA Ultrasonography of Superior Vena Cava, Guidance (ICD-10-PCS; 2022-01-17)
PROC: 02HV33Z Insertion of Infusion Device into Superior Vena Cava, Percutaneous Approach (ICD-10-PCS; 2022-01-17)
PROC: B5181ZA Fluoroscopy of Superior Vena Cava using Low Osmolar Contrast, Guidance (ICD-10-PCS; 2022-01-17)
PROC: 5A1D70Z Performance of Urinary Filtration, Intermittent, Less than 6 Hours Per Day (ICD-10-PCS; 2022-01-17)
PROC: 5A1D70Z Performance of Urinary Filtration, Intermittent, Less than 6 Hours Per Day (ICD-10-PCS; 2022-01-19)
PROC: 5A1D70Z Performance of Urinary Filtration, Intermittent, Less than 6 Hours Per Day (ICD-10-PCS; 2022-01-21)
PROC: 0DH68UZ Insertion of Feeding Device into Stomach, Via Natural or Artificial Opening Endoscopic (ICD-10-PCS; 2022-01-22)
PROC: 5A1D70Z Performance of Urinary Filtration, Intermittent, Less than 6 Hours Per Day (ICD-10-PCS; 2022-01-23)
PROC: 5A1D70Z Performance of Urinary Filtration, Intermittent, Less than 6 Hours Per Day (ICD-10-PCS; 2022-01-25)
PROC: 5A1D70Z Performance of Urinary Filtration, Intermittent, Less than 6 Hours Per Day (ICD-10-PCS; 2022-01-27)
PROC: 5A1D70Z Performance of Urinary Filtration, Intermittent, Less than 6 Hours Per Day (ICD-10-PCS; 2022-01-29)
PROC: 5A1955Z Respiratory Ventilation, Greater than 96 Consecutive Hours (ICD-10-PCS; principal; 2022-01-30)
PROC: 0BH17EZ Insertion of Endotracheal Airway into Trachea, Via Natural or Artificial Opening (ICD-10-PCS; 2022-01-30)
PROC: 5A12012 Performance of Cardiac Output, Single, Manual (ICD-10-PCS; 2022-01-30)
PROC: 4A10X4Z Monitoring of Central Nervous Electrical Activity, External Approach (ICD-10-PCS; 2022-01-31)
PROC: 0HBRXZZ Excision of Toe Nail, External Approach (ICD-10-PCS; 2022-01-31)
PROC: 0HBRXZZ Excision of Toe Nail, External Approach (ICD-10-PCS; 2022-01-31)
PROC: 0HBRXZZ Excision of Toe Nail, External Approach (ICD-10-PCS; 2022-01-31)
PROC: 0HBRXZZ Excision of Toe Nail, External Approach (ICD-10-PCS; 2022-01-31)
PROC: 0HBRXZZ Excision of Toe Nail, External Approach (ICD-10-PCS; 2022-01-31)
PROC: 0HBRXZZ Excision of Toe Nail, External Approach (ICD-10-PCS; 2022-01-31)
PROC: 0HBRXZZ Excision of Toe Nail, External Approach (ICD-10-PCS; 2022-01-31)
PROC: 0HBRXZZ Excision of Toe Nail, External Approach (ICD-10-PCS; 2022-01-31)
PROC: 0HBRXZZ Excision of Toe Nail, External Approach (ICD-10-PCS; 2022-01-31)
PROC: 0HBRXZZ Excision of Toe Nail, External Approach (ICD-10-PCS; 2022-01-31)
PROC: 5A1D70Z Performance of Urinary Filtration, Intermittent, Less than 6 Hours Per Day (ICD-10-PCS; 2022-02-06)
PROC: 5A1D70Z Performance of Urinary Filtration, Intermittent, Less than 6 Hours Per Day (ICD-10-PCS; 2022-02-08)
PROC: 05HY33Z Insertion of Infusion Device into Upper Vein, Percutaneous Approach (ICD-10-PCS; 2022-02-10)
PROC: B54MZZA Ultrasonography of Right Upper Extremity Veins, Guidance (ICD-10-PCS; 2022-02-10)
DX: A41.9 Sepsis, unspecified organism (principal); I50.23 Acute on chronic systolic (congestive) heart failure; N17.0 Acute kidney failure with tubular necrosis; J15.5 Pneumonia due to Escherichia coli; R65.21 Severe sepsis with septic shock; I21.A1 Myocardial infarction type 2; G92.8 Other toxic encephalopathy; J80 Acute respiratory distress syndrome; U07.1 COVID-19; N18.6 End stage renal disease; E43 Unspecified severe protein-calorie malnutrition; I63.81 Other cerebral infarction due to occlusion or stenosis of small artery; N39.0 Urinary tract infection, site not specified; K92.2 Gastrointestinal hemorrhage, unspecified; M62.82 Rhabdomyolysis; I47.1 Supraventricular tachycardia; E87.1 Hypo-osmolality and hyponatremia; E87.4 Mixed disorder of acid-base balance; G93.1 Anoxic brain damage, not elsewhere classified; I13.2 Hypertensive heart and chronic kidney disease with heart failure and with stage 5 chronic kidney disease, or end stage renal disease; E87.0 Hyperosmolality and hypernatremia; Z66 Do not resuscitate; D69.6 Thrombocytopenia, unspecified; E16.2 Hypoglycemia, unspecified; E83.51 Hypocalcemia; E88.09 Other disorders of plasma-protein metabolism, not elsewhere classified; I25.5 Ischemic cardiomyopathy; K44.9 Diaphragmatic hernia without obstruction or gangrene; K76.9 Liver disease, unspecified; R13.12 Dysphagia, oropharyngeal phase; R62.7 Adult failure to thrive; I46.9 Cardiac arrest, cause unspecified; D64.9 Anemia, unspecified; I25.10 Atherosclerotic heart disease of native coronary artery without angina pectoris; E87.8 Other disorders of electrolyte and fluid balance, not elsewhere classified; R73.9 Hyperglycemia, unspecified; E87.6 Hypokalemia; R31.9 Hematuria, unspecified; B35.1 Tinea unguium; K80.20 Calculus of gallbladder without cholecystitis without obstruction; E87.5 Hyperkalemia; T38.0X5A Adverse effect of glucocorticoids and synthetic analogues, initial encounter; R53.81 Other malaise; Z20.822 Contact with and (suspected) exposure to COVID-19; E78.5 Hyperlipidemia, unspecified; I08.0 Rheumatic disorders of both mitral and aortic valves; E83.39 Other disorders of phosphorus metabolism; G40.901 Epilepsy, unspecified, not intractable, with status epilepticus; S70.322A Blister (nonthermal), left thigh, initial encounter; S70.321A Blister (nonthermal), right thigh, initial encounter; X58.XXXA Exposure to other specified factors, initial encounter; F03.90 Unspecified dementia, unspecified severity, without behavioral disturbance, psychotic disturbance, mood disturbance, and anxiety; D75.839 Thrombocytosis, unspecified; Z87.891 Personal history of nicotine dependence; Z95.5 Presence of coronary angioplasty implant and graft; Y93.89 Activity, other specified; Y92.89 Other specified places as the place of occurrence of the external cause; Y99.8 Other external cause status; I25.2 Old myocardial infarction; Z90.49 Acquired absence of other specified parts of digestive tract; Z79.899 Other long term (current) drug therapy; Z79.82 Long term (current) use of aspirin; Z68.20 Body mass index [BMI] 20.0-20.9, adult
CPT/HCPCS: 31500; 36415; 36556; 36573; 36600; 70551; 71045; 71250; 74018; 74176; 76700; 76770; 76937; 77001; 80048; 80053; 80061; 80076; 80185; 80202; 80305; 80320; 81003; 82105; 82140; 82270; 82330; 82375; 82550; 82553; 82575; 82607; 82728; 82746; 82805; 82962; 83036; 83520; 83540; 83550; 83605; 83735; 83880; 84100; 84145; 84439; 84443; 84478; 84484; 85014; 85018; 85025; 85027; 85044; 85049; 86038; 86160; 86256; 86705; 86706; 86709; 86738; 86803; 86850; 86900; 86920; 87070; 87077; 87107; 87186; 87340; 87426; 92610; 92950; 93005; 93306; 93923; 93970; 94002; 94003; 94640; 94660; 94667; 95816; 97162; 97164; 97165; 97530; 99291; C1725; C1752; C1769; C1887; C9113; J0153; J0360; J0610; J0692; J0696; J0885; J1100; J1165; J1265; J1720; J1815; J1940; J1953; J2060; J2185; J2248; J2250; J2370; J2405; J2543; J2704; J2765; J2920; J2930; J3370; J3480; J3490; J7030; J7050; J7060; J7070; J7512; J7608; J8540; P9016; U0003; U0005; A4315; G0480